=== PATIENT | male | born 1945 | race Caucasian/White ===

== ENCOUNTER → 2018-07-12 15:17 | Outpatient (CLI) | payer MEDICARE, OTHER, SELFPAY ==
--- OUTSIDE RECORDS SUMMARY | 2018-09-07 08:23 | XMS RPT_ITS ---
:1945 Author Organization [facility] Care Team Providers Name Role Phone Everardo Dave Attending Unavailable Everardo Dave Referring Unavailable Rukhsana Melo Primary Care Unavailable Everardo Dave Attending Unavailable Everardo Dave Referring Unavailable Rukhsana Melo Primary Care Unavailable PROBLEMS PROBLEMS No Problem Records FoundPROCEDURES PROCEDURES No Procedure Records FoundRESULTS RESULTS KIDNEY AND BLADDER Observed: 07/14/2018 Status: F Source: LAVINIA 9:25 AM [facility] REPOSITORY [facility] Imaging Services [address] [place] [address] Kidney and Bladder MR#: [id number] Acct: [id number] Name: LUCIAON OLSON Rep #: [id number] : 1945 M 73 From: Chang Black DO PCP: Rukhsana Melo MD Status: REG CLI Study: Kidney and Bladder Date of Exam: 07/14/18 Exam# [id number] Ordering Dr: Everardo Dave MD STUDY: RENAL ULTRASOUND - COMPLETE REASON FOR EXAM: Male, 73 years old. Follow-up of left renal cancer surgery in 2008 TECHNIQUE: Ultrasound evaluation of the kidneys was performed with real-time and static ramirez-scale imaging. COMPARISON: None. FINDINGS: RIGHT KIDNEY: Normal location of the right kidney, which is normal in size. The right kidney measures 11 cm. There is a normal cortex of the right kidney. The renal cortex measures 1.2 cm. Superior pole cyst measuring 1.1 x 0.9 x 0.7 cm. There are no right renal calculi. There is no right hydronephrosis. DISTAL RIGHT URETER: There is non-visualization of the distal right ureter. There is no demonstrated right ureterovesical junction calculus. There is no demonstrated right ureteral jet. LEFT KIDNEY: Normal location of the left kidney, which is normal in size. The left kidney measures 11 cm. There is a normal cortex of the left kidney. The renal cortex measures 1.1 cm. Small midpole cyst measuring 1.3 x 1.2 x 1.6 cm There are no left renal calculi. There is no left hydronephrosis. DISTAL LEFT URETER: There is non-visualization of the distal left ureter. There is no demonstrated left ureterovesical junction calculus. There is no demonstrated left ureteral jet. BLADDER: The distended urinary bladder has a volume of 212 ml. The empty urinary bladder has a volume of 66 ml. There is a normal wall thickness of the distended urinary bladder. There is no demonstrated mass within the urinary bladder. There are no demonstrated bladder calculi. US/Kidney and Bladder IMPRESSION: No evidence of suspicious renal mass. Grossly unremarkable kidneys. Small bilateral renal cysts. Electronically Signed: Chang Black DO at 10:43 EST Tel , Service support , CC: Rukhsana Melo MD; Everardo Dave MD Shallot Packer: Signed PSA,TOTAL - ANNUAL Collected: 07/12/2018 Status: F Source: LAVINIA SCREEN 3:27 PM [facility] REPOSITORY TYPE CODE TESTS RESULT OUT OF RANGE REFERENCE UNITS LAB L501.9910 0.00-4.00 ng/mL Normal PSA,TOT 2.60 SCREEN Result Comment: This test was performed using the TPSA assay method for the Dimension chemistry system. Values obtained with different assay methods cannot be used interchangably. When changing PSA assays in the course of monitoring a patient, additional sequential testing should be carried out to confirm baseline values. Performed By: #### L501.9910 #### [facility] [address] [place], [address] PROGRESS Observed: 03/13/2018 Status: COMPLETED Source: SACHSE 1:03 PM [facility] REPOSITORY HNO ID: [id number] Author: Miryam Gallegos Service: (none) Author Type: Nurse Practitioner Type: Progress Notes Filed: 03/13/2018 1:06 PM Note Text: Subjective HPI Pt presents with c/o tender area to left upper eye lid x several hours. Denies eye pain, vision change, fever, chills. Has not applied heat. Denies injury. Review of Systems Constitutional: Negative for chills and fever. Eyes: Negative for blurred vision, double vision, photophobia, pain, discharge and redness. Objective Physical Exam Constitutional: He is oriented to person, place, and time and well-developed, well-nourished, and in no distress. No distress. HENT: Head: Normocephalic. Right Ear: Hearing, tympanic membrane, external ear and ear canal normal. Left Ear: Hearing, tympanic membrane, external ear and ear canal normal. Nose: Nose normal. No mucosal edema. Mouth/Throat: Uvula is midline, oropharynx is clear and moist and mucous membranes are normal. No oropharyngeal exudate. Eyes: EOM are normal. Pupils are equal, round, and reactive to light. Left eye exhibits hordeolum. Left eye exhibits no discharge. Right conjunctiva is not injected. Left conjunctiva is not injected. Pupils unequal: vision 20/20 via dawn card. Neck: Neck supple. Cardiovascular: Normal rate, regular rhythm and normal heart sounds. Exam reveals no gallop and no friction rub. No murmur heard. Pulmonary/Chest: Effort normal and breath sounds normal. No respiratory distress. He has no wheezes. He has no rales. Neurological: He is alert and oriented to person, place, and time. Skin: Skin is warm and dry. He is not diaphoretic. BP 130/80 Pulse 80 Temp 36.6 ?C (97.8 ?F) (Left Tympanic) Resp 18 Wt 80.3 kg (177 lb) BMI 27.72 kg/m? .Patient presents with: Eye Problem PAST MEDICAL HISTORY Diagnosis Date - Benign neoplasm of colon 09/30/05 - Brain bleed (HCC) 09/2014 - External hemorrhoids without mention of complication 09/30/05 - Hemorrhage of gastrointestinal tract, unspecified 09/30/05 - Internal hemorrhoids without mention of complication 09/30/05 - PMH - PAST MEDICAL HISTORY OF 1999 mitral valve replacement - Renal cell carcinoma (HCC) 06/24 PAST SURGICAL HISTORY Procedure Laterality Date - COLONOS W/REM POLYP SNARE 07/24/11 - COLONOSCOPY AND POLYPECTOMY 11/02/2016 - COLONOSCOPY W/BX 09/30/05 - PAST SURGICAL HISTORY OF 1999 mitral valve replacement - PAST SURGICAL HISTORY OF 06/2009 kidney surgery - REMOVAL ADENOIDS,PRIMARY,<12 Y/O Adenoidectomy - REMOVAL OF TONSILS,<12 Y/O Tonsillectomy ALLERGIES Iodine; Novacaine [Procainamide]; Zocor [Simvastatin] MEDICATIONS warfarin (COUMADIN) 4 mg tablet 5 mg daily or as directed warfarin (COUMADIN) 1 mg tablet Take 1 tablet by mouth once daily. aspirin, enteric coated (ECOTRIN LOW STRENGTH) 81 mg EC tablet Take 1 tablet by mouth once daily. Take 3 times per week pravastatin (PRAVACHOL) 40 mg tablet Take 1 tablet by mouth daily at bedtime. OTC PRODUCT Stool softener daily. erythromycin ophthalmic ointment Use 1 application in the left eye daily at bedtime. FAMILY HISTORY Problem Relation Age of Onset - Cancer Mother Breast and colon cancer - None Father old age - throat cancer [OTHER] Brother - Diabetes Brother Social History Substance Use Topics - Smoking status: Former Smoker Packs/day: 1.00 Years: 25.00 Types: Cigarettes Quit date: 03/16/1988 - Smokeless tobacco: Never Used - Alcohol use Yes Comment: twice per year ASSESSMENT/PLAN: 1. Hordeolum internum of left upper eyelid - ICD9: 373.12, ICD10: H00.024 - ERYTHROMYCIN 5 MG/GRAM (0.5 %) EYE OINTMENT Reviewed and printed stye education. The patient is instructed to return or seek emergency treatment if symptoms become worse or with any acute change in condition. The patient verbalizes understanding and is in agreement with plan of care. Miryam Gallegos CNP CNOV Observed: 03/13/2018 Status: COMPLETED Source: SACH[place] 10:15 AM [facility] WHITNEYLUCIANO ([id number]) 1945 M Date Time Provider Department 03/13/18 10:15 AM MIRYAM GALLEGOS [facility] During your visit today, we recorded the following information about you: Temperature Pulse Respiration Blood pressure 97.8 degrees 80/minute 18/minute 130/80 Weight 80.3 kg Miryam Gallegos APRN.CNP 03/13/2018 10:21 AM Signed [facility] [address] [place] [address] Emergency Department Diagnosis: Assessment STY: You have a sty, an infection of one of the tiny glands located on the eyelid. A sty takes several days to develop. It usually forms a small abscess along the edge of the eyelid. The pus that forms in the infected gland must drain for the sty to heal. A sty is treated by applying warm moist compresses to the eye for 15 minutes three times daily until it drains and the swelling and redness are gone. Some sties require surgical drainage. Antibiotic eye drops may be needed if the infection spreads to other areas of the eye. Please see your doctor if your eye is not better after 3 days of treatment. Return immediately of see your doctor for any fever or loss of vision. Miryam Gallegos APRN.CNP 03/13/2018 1:06 PM Signed Subjective HPI Pt presents with c/o tender area to left upper eye lid x several hours. Denies eye pain, vision change, fever, chills. Has not applied heat. Denies injury. Review of Systems Constitutional: Negative for chills and fever. Eyes: Negative for blurred vision, double vision, photophobia, pain, discharge and redness. Objective Physical Exam Constitutional: He is oriented to person, place, and time and well-developed, well-nourished, and in no distress. No distress. HENT: Head: Normocephalic. Right Ear: Hearing, tympanic membrane, external ear and ear canal normal. Left Ear: Hearing, tympanic membrane, external ear and ear canal normal. Nose: Nose normal. No mucosal edema. Mouth/Throat: Uvula is midline, oropharynx is clear and moist and mucous membranes are normal. No oropharyngeal exudate. Eyes: EOM are normal. Pupils are equal, round, and reactive to light. Left eye exhibits hordeolum. Left eye exhibits no discharge. Right conjunctiva is not injected. Left conjunctiva is not injected. Pupils unequal: vision 20/20 via dawn card. Neck: Neck supple. Cardiovascular: Normal rate, regular rhythm and normal heart sounds. Exam reveals no gallop and no friction rub. No murmur heard. Pulmonary/Chest: Effort normal and breath sounds normal. No respiratory distress. He has no wheezes. He has no rales. Neurological: He is alert and oriented to person, place, and time. Skin: Skin is warm and dry. He is not diaphoretic. BP 130/80 Pulse 80 Temp 36.6 ?C (97.8 ?F) (Left Tympanic) Resp 18 Wt 80.3 kg (177 lb) BMI 27.72 kg/m? .Patient presents with: Eye Problem PAST MEDICAL HISTORY Diagnosis Date - Benign neoplasm of colon 09/30/05 - Brain bleed (HCC) 09/2014 - External hemorrhoids without mention of complication 09/30/05 - Hemorrhage of gastrointestinal tract, unspecified 09/30/05 - Internal hemorrhoids without mention of complication 09/30/05 - PMH - PAST MEDICAL HISTORY OF 1999 mitral valve replacement - Renal cell carcinoma (HCC) 06/24 PAST SURGICAL HISTORY Procedure Laterality Date - COLONOS W/REM POLYP SNARE 07/24/11 - COLONOSCOPY AND POLYPECTOMY 11/02/2016 - COLONOSCOPY W/BX 09/30/05 - PAST SURGICAL HISTORY OF 1999 mitral valve replacement - PAST SURGICAL HISTORY OF 06/2009 kidney surgery - REMOVAL ADENOIDS,PRIMARY,<12 Y/O Adenoidectomy - REMOVAL OF TONSILS,<12 Y/O Tonsillectomy ALLERGIES Iodine; Novacaine [Procainamide]; Zocor [Simvastatin] MEDICATIONS warfarin (COUMADIN) 4 mg tablet 5 mg daily or as directed warfarin (COUMADIN) 1 mg tablet Take 1 tablet by mouth once daily. aspirin, enteric coated (ECOTRIN LOW STRENGTH) 81 mg EC tablet Take 1 tablet by mouth once daily. Take 3 times per week pravastatin (PRAVACHOL) 40 mg tablet Take 1 tablet by mouth daily at bedtime. OTC PRODUCT Stool softener daily. erythromycin ophthalmic ointment Use 1 application in the left eye daily at bedtime. FAMILY HISTORY Problem Relation Age of Onset - Cancer Mother Breast and colon cancer - None Father old age - throat cancer [OTHER] Brother - Diabetes Brother Social History Substance Use Topics - Smoking status: Former Smoker Packs/day: 1.00 Years: 25.00 Types: Cigarettes Quit date: 03/16/1988 - Smokeless tobacco: Never Used - Alcohol use Yes Comment: twice per year ASSESSMENT/PLAN: 1. Hordeolum internum of left upper eyelid - ICD9: 373.12, ICD10: H00.024 - ERYTHROMYCIN 5 MG/GRAM (0.5 %) EYE OINTMENT Reviewed and printed stQuad/Graphics education. The patient is instructed to return or seek emergency treatment if symptoms become worse or with any acute change in condition. The patient verbalizes understanding and is in agreement with plan of care. Miryam Gallegos CNP Referring Provider: SELF [200] Allergies As of Date: 03/13/2018 Noted Allergy Reaction IODINE 08/20/2005 5 - Intolerance Comments: IV NOVACAINE (PROCAINAMIDE) 07/18/2008 10 - Anaphylaxis ZOCOR (SIMVASTATIN) 08/20/2005 5 - Intolerance Comments: hot flashes,sweat, Date Reviewed: 03/13/2018 Reviewed by: Tali Ulloa Ma - Fully Assessed Reason for Visit: Eye Problem [43] Primary Visit Diagnosis:Hordeolum internum of left upper eyelid [H00.024] Order(s):erythromycin ophthalmic ointmentUse 1 application in the left eye daily at bedtime.Disp: 1 TubeRfl: 0 Prescriptions as of 03/13/2018 Sig: WARFARIN 4 MG TABLET 5 mg daily or as directed WARFARIN 1 MG TABLET Take 1 tablet by mouth once d* ASPIRIN 81 MG TABLET,DELAYED * Take 1 tablet by mouth once d* PRAVASTATIN 40 MG TABLET Take 1 tablet by mouth daily * OTC PRODUCT Stool softener daily. ERYTHROMYCIN 5 MG/GRAM (0.5 %* Use 1 application in the left* Problem List As Of Date 03/13/2018 Noted Resolved BENIGN NEOPLASM LG BOWEL [D12.6] INVALID FOR* GASTROINTEST HEMORR NOS [K92.2] INVALID FOR* INT HEMORRHOID W/O COMPL [K64.8] INVALID FOR* EXT HEMORRHOID W/O COMPL [K64.4] INVALID FOR* HEART VALVE REPLAC NEC [Z95.4] INVALID FOR* Hyperlipidemia, Mixed [E78.2] INVALID FOR* Diverticulosis [K57.90] INVALID FOR* Personal history of colonic polyps [Z86.010] INVALID FOR* Encounter for screening colonoscopy [Z12.11] INVALID FOR* Other instructions from your clinician: [facility] [address] [place], [place] [address] Emergency Department Diagnosis: Assessment STY: You have a sty, an infection of one of the tiny glands located on the eyelid. A sty takes several days to develop. It usually forms a small abscess along the edge of the eyelid. The pus that forms in the infected gland must drain for the sty to heal. A sty is treated by applying warm moist compresses to the eye for 15 minutes three times daily until it drains and the swelling and redness are gone. Some sties require surgical drainage. Antibiotic eye drops may be needed if the infection spreads to other areas of the eye. Please see your doctor if your eye is not better after 3 days of treatment. Return immediately of see your doctor for any fever or loss of vision. Prescriptions ordered this encounter Disp Refills Start End ERYTHROMYCIN 5 MG/GRAM (0.5 %) EYE O* 1 Tu* 0 03/13/2018 Route: LEFT EYE Sig: Use 1 application in the left eye daily at bedtime. Encounter Status:Closed by MIRYAM GALLEGOS CNP on 03/13/18 ALLERGIES ALLERGIES DATE TYPE / NAME / CODE REACTION SEVERITY SOURCE CODE 10/26/2016 Drug simvastatin/[id number] Other Unknown Lavinia Allergy/41 3621(RXNORM) [facility] [id number]([facility]) Repository 10/26/2016 Drug procaine/[id number] Swelling Unknown Lavinia Allergy/41 5(RXNORM) [facility] [id number]( [facility]) Repository 07/18/2008 DRUG PROCAINAMIDE ANAPHYLAXIS [address] [id number]( Repository [facility]) 08/20/2005 DRUG IODINE INTOLERANCE [address] [id number]( Repository O[facility]) 08/20/2005 DRUG SIMVASTATIN INTOLERANCE [address] [id number]( Repository O[facility]) ENCOUNTERS ENCOUNTERS ADMIT/DISCHARGE ACCOUNT ADMITTING ENCOUNTER LOCATION SOURCE NUMBER CLASS 07/14/2018 [id number] General acute hospital ing:US Repository 07/12/2018 [id number] General acute hospital ing:LAB Repository 03/13/2018/03/16/20 [id number] Ambulatory [address] Repository PAYERS PAYERS ENCOUNTER GUARANTOR PAYER SUBSCRIBER SOURCE 07/14/2018 LUCIANO Cortes Primary LUCIANO Kate [id number] Insurance:MEDICARE ZEITERDOB: [facility] [id number] Number: Repository [id number]: 330 [id number] [phone] (HP) Date:2018-07-12 07/14/2018 Secondary LUCIANO Kate Insurance:MUTUAL OF ZEITERDOB: [facility] Number: [id number] Hospital [id number] Repository Date:2434-15-79OYWWQE [place], [place] [address]GF: 07/14/2018 Tertiary NOT GIVENUNK [place] Insurance:SELF PAY [facility] Number: Effective Repository Date:2018-07-12 07/12/2018 LUCIANO E Primary LUCIANO Kate [id number] Insurance:MEDICARE ZEITERDOB: [facility] [id number] Number: Repository [id number]: 330 [id number] [phone] (HP) Date:2018-07-12 07/12/2018 Secondary LUCIANO Kate Insurance:MUTUAL OF ZEITERDOB: [facility] Number: [id number] Hospital [id number] Repository Date:6929-28-33MOBPSB OF [place] [address]WI: 07/12/2018 Tertiary NOT GIVENUNK Lavinia Insurance:SELF [facility]Y [facility]: Effective Repository Date:2018-07-12
== END ==
PROVIDERS: Family Provider Family Medicine; PCP Family Medicine; Referring Provider Urology; Visit Provider Urology
DX: Z12.5 Encounter for screening for malignant neoplasm of prostate (principal)
CPT/HCPCS: 36415; 84153; G0103

== ENCOUNTER → 2018-07-14 09:22 | Outpatient (CLI) | payer MEDICARE, OTHER, SELFPAY ==
--- NOTE | 2018-07-14 09:25 | US_ITS ---
STUDY: RENAL ULTRASOUND - COMPLETE REASON FOR EXAM: Male, 73 years old. Follow-up of left renal cancer surgery in 2008 TECHNIQUE: Ultrasound evaluation of the kidneys was performed with real-time and static ramirez-scale imaging. COMPARISON: None. FINDINGS: RIGHT KIDNEY: Normal location of the right kidney, which is normal in size. The right kidney measures 11 cm. There is a normal cortex of the right kidney. The renal cortex measures 1.2 cm. Superior pole cyst measuring 1.1 x 0.9 x 0.7 cm. There are no right renal calculi. There is no right hydronephrosis. DISTAL RIGHT URETER: There is non-visualization of the distal right ureter. There is no demonstrated right ureterovesical junction calculus. There is no demonstrated right ureteral jet. LEFT KIDNEY: Normal location of the left kidney, which is normal in size. The left kidney measures 11 cm. There is a normal cortex of the left kidney. The renal cortex measures 1.1 cm. Small midpole cyst measuring 1.3 x 1.2 x 1.6 cm There are no left renal calculi. There is no left hydronephrosis. DISTAL LEFT URETER: There is non-visualization of the distal left ureter. There is no demonstrated left ureterovesical junction calculus. There is no demonstrated left ureteral jet. BLADDER: The distended urinary bladder has a volume of 212 ml. The empty urinary bladder has a volume of 66 ml. There is a normal wall thickness of the distended urinary bladder. There is no demonstrated mass within the urinary bladder. There are no demonstrated bladder calculi. US/Kidney and Bladder IMPRESSION: No evidence of suspicious renal mass. Grossly unremarkable kidneys. Small bilateral renal cysts. Electronically Signed: Chang Black DO at 10:43 EST Tel , Service support ,
--- OUTSIDE RECORDS SUMMARY | 2018-09-08 10:17 | XMS RPT_ITS ---
[...] 07/14/2018 Status: F Source: LAVINIA 9:25 AM [facility] REPOSITORY [facility] Imaging Services [address] [place] [address] Kidney and Bladder MR#: [id number] Acct: [id number] Name: LUCIANO OLSON Rep #: [id number] : 1945 M 73 From: Chang Black DO PCP: Rukhsana Melo MD Status: REG CLI Study: Kidney and Bladder Date of Exam: 07/14/18 Exam# [id number] Ordering Dr: Everardo Dave MD STUDY: RENAL [...] CC: Rukhsana Melo MD; Everardo Dave MD Database Modeler: Signed PSA,TOTAL - ANNUAL Collected: 07/12/2018 Status: F Source: LAVINIA SCREEN 3:27 PM [facility] REPOSITORY TYPE CODE TESTS RESULT OUT OF [...] baseline values. Performed By: #### L501.9910 #### [facility] [address] [place], [address] PROGRESS Observed: 03/13/2018 Status: COMPLETED Source: MONTELLO 1:03 PM [facility] REPOSITORY HNO ID: [id number] Author: Miryam Gallegos Service: (none) Author Type: [...] CNP CNOV Observed: 03/13/2018 Status: COMPLETED Source: MONTELLO 10:15 AM [facility] REPOSITORY [facility] WHITNEYLUCIANO ([id number]) 1945 M Date Time Provider Department 03/13/18 10:15 AM MIRYAM GALLEGOS [facility] During your visit today, we recorded the following information about you: Temperature Pulse Respiration Blood pressure 97.8 degrees 80/minute 18/minute 130/80 Weight 80.3 kg Miryam Gallegos APRN.CNP 03/13/2018 10:21 AM Signed [facility] [address] [place] [address] Emergency Department Diagnosis: Assessment STY: You have [...] (0.5 %) EYE OINTMENT Reviewed and printed [email or web address] education. The patient is instructed to return [...] FOR* Other instructions from your clinician: [facility] [address] [place], [place] [address] Emergency Department Diagnosis: Assessment STY: You have [...] CODE REACTION SEVERITY SOURCE CODE 10/26/2016 Drug simvastatin/[id number] Other Unknown Lavinia Allergy/41 3621(RXNORM) [facility] [id number]([facility]) Repository 10/26/2016 Drug procaine/[id number] Swelling Unknown Lavinia Allergy/41 5(RXNORM) [facility] [id number]( Hospital [facility]) Repository 07/18/2008 DRUG PROCAINAMIDE ANAPHYLAXIS [address] [id number]( Repository O[address] CT) 08/20/2005 DRUG IODINE INTOLERANCE [address] [id number]( Repository O[address] CT) 08/20/2005 DRUG SIMVASTATIN INTOLERANCE [address] [id number]( Repository O[address] CT) ENCOUNTERS ENCOUNTERS ADMIT/DISCHARGE ACCOUNT ADMITTING ENCOUNTER LOCATION SOURCE NUMBER CLASS 07/14/2018 [id number] [facility] ing:US Repository 07/12/2018 [id number] [facility] ing:LAB Repository 03/13/2018/03/16/20 [id number] Ambulatory [address] Repository PAYERS PAYERS ENCOUNTER GUARANTOR PAYER SUBSCRIBER SOURCE 07/14/2018 LUCIANO Cortes Primary LUCIANO Kate [id number] Insurance:MEDICARE ZEITERDOB: [facility] [id number] Number: Repository [id number]: 330 [id number] [phone] (HP) Date:2018-07-12 07/14/2018 Secondary LUCIANO Kate Insurance:MUTUAL OF ZEITERDOB: [facility] Number: [id number] Hospital [id number] Repository Date:1951-16-42[place]KLEL [place], [place] [address]RA: 07/14/2018 Tertiary NOT GIVENUNK [place] Insurance:SELF PAY [facility] Number: Effective Repository Date:2018-07-12 07/12/2018 LUCIANO E Primary LUCIANO Kate [id number] Insurance:MEDICARE ZEITERDOB: [facility] [id number] Number: Repository [id number]: 330 [id number] [phone] (HP) Date:2018-07-12 07/12/2018 Secondary LUCIANO Kate Insurance:MUTUAL OF ZEITERDOB: [facility] Number: [id number] [id number] Repository Date:4650-97-29[place]QUPR[place] [address]CO: 07/12/2018 Tertiary NOT GIVENUNK Lavinia Insurance:SELF PAY [facility] Effective Repository Date:2018-07-12
== END ==
PROVIDERS: Family Provider Family Medicine; PCP Family Medicine; Referring Provider Urology; Visit Provider Urology
DX: C64.9 Malignant neoplasm of unspecified kidney, except renal pelvis (principal)
CPT/HCPCS: 76770

== ENCOUNTER → 2018-11-01 08:55 | Outpatient (CLI) | payer MEDICARE, OTHER, SELFPAY ==
[2016-11-02 06:32] VITALS: BMI 26.5
[2018-11-01 10:34] LABS: ALB/GLOB Ratio 1.2 RATIO (0.9-2.4); AST(SGOT) 38 U/L (15-37); Alanine Aminotransfer ALT/SGPT 41 U/L (16-61); Alkaline Phosphatase 63 U/L (45-117); Anion Gap 9 (5-15); BUN 16 mg/dL (7-18); BUN/Creat Ratio 13.2 RATIO (10-20); Calcium,Total 8.9 mg/dL (8.5-10.1); Chloride 104 mmol/L (98-107); Cholesterol 196 mg/dL (200); Creatinine, Serum 1.21 mg/dL (0.70-1.30); EST Glomerular Filtration Rate 63 mL/min (>60); Est Glom Filt Rate - Afr Amer 76 mL/min (>60); Globulin 3.4 g/dL (2.2-4.2); Glucose 87 mg/dL (74-106); High Density Lipoprotein 66 mg/dL; Potassium 4.4 mmol/L (3.5-5.1); Protein, Total 7.4 g/dL (6.4-8.2); Sodium Level 138 mmol/L (136-145); Triglycerides 84 mg/dL; Very Low Density Lipoprotein 17 mg/dL (5-40)
== END ==
PROVIDERS: Family Provider Family Medicine; PCP Family Medicine; Referring Provider Family Medicine; Visit Provider Nurse Practitioner Family
DX: E78.00 Pure hypercholesterolemia, unspecified (principal)
CPT/HCPCS: 36415; 80053; 80061

== ENCOUNTER 2019-03-16 10:38 | Emergency (ER) | payer MEDICARE, OTHER, SELFPAY ==
[2019-03-16 10:40] VITALS: BP 139/79; PULSE 66; RESP 14; TEMP 36.4; O2SAT 97; BMI 26.4
--- NOTE | 2019-03-16 11:30 | ED.DCSUM_ITS ---
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 Is helping to change out windows at his home and cut his right thumb within the last several hours on broken glass. Tetanus is up-to-date about a year ago. Does not believe there is any foreign body. Patient is right-hand dominant. Denies any numbness. Physical Examination: Older male no acute distress. Vital signs are stable and afebrile. HEENT exam unremarkable. Neck nontender. Lungs clear to auscultation. Heart mechanical valve with a soft ejection murmur. Abdomen soft. Extremities moving all 4. Neurovascular intact. The right palm thenar eminence of the thumb he has a 3 cm laceration with oozing of blood. No pulsatile bleeding. No foreign body. No signs of infection. Right hand is completely neurovascular intact is able to open and close all digits of the hand. He is normal touch sensation normal range of motion. There is no bony deformity. Test Results: None Emergency Department Course and Treatment: Right palm laceration repair: Locally anesthetized with lidocaine. Cleaned with Shur-Clens. Explored. Irrigated with saline. Closed using 4 simple interrupted 4-0 Ethilon sutures. Proper hemostasis wound closure obtained. Patient tolerated procedure well. Treatment Plan: Ice and elevate. Wound care. Suture removal in 10 days. Watch for any signs of infection. Disposition: Discharge Impression: Right palm laceration 3 cm with ER repair Anticoagulated on Coumadin due to mechanical valve This note was generated with [employer] dictation software. It may contain incorrect words, spelling, and punctuation that were not noted in review of the chart prior to signing ED Disposition - Plan for ED Patient: Referrals: Rukhsana Melo MD [Primary Care Provider] -
--- NOTE | 2019-03-16 11:33 | ED.DEP ---
ED Disposition - Plan for ED Patient: Disposition: Home or Assisted Living Instructions: LACERATION, Extrem (Suture, Staple or Tape) Referrals: Rukhsana Melo MD [Primary Care Provider] - 10 Day for suture removal Additional Instructions: Ice and elevate. Clean daily and apply antibiotic ointment. Watch for any signs of infection such as pus, redness or fever. Stitches removed in 10 days
== END 2019-03-16 12:02 | disposition home or self-care (01) ==
LOC: ED 11:45
PROVIDERS: Emergency Provider Emergency Medicine; Family Provider Family Medicine; PCP Family Medicine
DX: S61.011A Laceration without foreign body of right thumb without damage to nail, initial encounter (principal); W25.XXXA Contact with sharp glass, initial encounter; Y93.9 Activity, unspecified; Y92.9 Unspecified place or not applicable; R01.1 Cardiac murmur, unspecified; Z95.2 Presence of prosthetic heart valve; Z79.01 Long term (current) use of anticoagulants; E78.00 Pure hypercholesterolemia, unspecified; Z79.82 Long term (current) use of aspirin; Z79.899 Other long term (current) drug therapy
CPT/HCPCS: 12002; 99282

== ENCOUNTER → 2019-12-05 10:07 | Outpatient (CLI) | payer MEDICARE, OTHER, SELFPAY ==
[2019-12-05 12:19] LABS: AST(SGOT) 27 U/L (15-37); Alanine Aminotransfer ALT/SGPT 30 U/L (16-61); Cholesterol 191 mg/dL (200); High Density Lipoprotein 57 mg/dL; Triglycerides 135 mg/dL; Very Low Density Lipoprotein 27 mg/dL (5-40)
== END ==
PROVIDERS: PCP Family Medicine; Referring Provider Family Medicine; Visit Provider Family Medicine
DX: E78.00 Pure hypercholesterolemia, unspecified (principal)
CPT/HCPCS: 36415; 80061; 84450; 84460

== ENCOUNTER 2020-01-29 05:24 | Day surgery (SDC) | payer MEDICARE, OTHER, SELFPAY ==
[2020-01-16 16:00] VITALS: BMI 27.6
[2020-01-28 13:45] LABS: Probe Check PASS; Specimen Processing Control PASS
[2020-01-29 05:45] VITALS: BP 139/97; PULSE 71; RESP 16; TEMP 36.8; O2SAT 97; BMI 27.0
[2020-01-29] MEDS: Lactated Ringers 1,000 ML 100 ML IV (06:05)
--- NOTE | 2020-01-29 06:06 | PCM.HP.BLA ---
Problem List (1) History of colonic polyps Status: Acute History and Physical Date of Admission: 01/29/20 Intake Visit Reasons: CSCOPE Chief Complaint: c-scope, hx colon polyps Hematology Technician Required: No Is patient in pain?: No Allergies procaine [From Novocain] Allergy (Verified 01/04/20 07:38) Swelling simvastatin [From Zocor] Allergy (Verified 01/04/20 07:38) Other Medications Pravastatin [Pravachol] 40 mg PO QHS 07/25/13 [History Confirmed 01/04/20] Warfarin [Coumadin] 4 mg PO SUTUTHSA 07/25/13 [History Confirmed 01/04/20] Warfarin [Coumadin] 3 mg PO MOWEFR 03/29/14 [History Confirmed 01/04/20] Aspirin E.C. [Ecotrin] 81 mg PO MOWEFR 10/26/16 [History Confirmed 01/04/20] Docusate Sodium [Stool Softener] 100 mg PO DAILY 10/26/16 [History Confirmed 01/04/20] [facility] Medical History (Updated 01/04/20 @ 08:[address] Marino Ontiveros MD) Chronic anticoagulation (Acute) Family history of malignant neoplasm of colon in mother (Acute) History of colonic polyps (Acute) Back pain (Acute) Hemorrhoid (Acute) History of colon polyps (Acute) History of kidney cancer (Acute) Rheumatoid arthritis (Acute) history of brain bleed (Acute) Surgical History (Updated 01/04/20 @ 08:[address] Marino Ontiveros MD) Mitral valve replaced (Acute) History of colonoscopy with polypectomy (Acute ~10/2016) History of heart valve replacement (Acute) History of nephrectomy (Acute) Family History (Updated 01/04/20 @ 07:37 by Dinorah Chiu) Mother Colon cancer Breast cancer Social History (Updated 01/04/20 @ 08:[address] Marino Ontiveros MD) Smoking Status: Former smoker HPI HPI HPI: LUCIANO OLSON, is a 74 M who presents to the office today for surgical consultation regarding a colonoscopy because of a personal history of colon polyps and a family history of colon cancer in his mother. His most recent colonoscopy was 2016. He does have a mitral valve replacement. He is on chronic Coumadin. He states that his INR typically runs 2.5-3.5. More recently it is been at 4. I have pathology from November 02, 2016 showing a mid transverse colon polyp tubular adenoma and a distal sigmoid polyp tubular adenoma. He was left fully anticoagulated at Coumadin at that time with no changes and he was treated with 2 g of ampicillin IV. He denies chest pain or shortness of breath no fever chills or sweats no nausea or vomiting no abdominal pain no bright red blood per rectum or melena. He does have concerns about the benefit of wearing masks. The patient is referred by Dr. Rukhsana Melo for surveillance colonoscopy and a written copy of my surgical consult and recommendations will be returned to her HPI HPI HPI: LUCIANO OLSON, is a 74 M who presents to the office today for ROS General General: No weight change, appetite, fatigue, colon cancer, breast cancer or weakness HEENT HEENT: No difficulty swallowing, eye injury, eye surgery, swollen glands or hoarseness Endo Endocrine: No thyroid disease, diabetes mellitus, thyroid cancer, Hair loss, heat intolerance or cold intolerance Musc Musculoskeletal: Yes back problems and rheumatoid arthritis; no arthritis, gout or joint pain Cardio Cardiovascular: No murmur, pacemaker, heart disease, atrial fibrillation, high blood pressure, heart attack, heart stent, palpitations, shortness of breat with exertion or chest pain Psych Psychiatric: No depression, anxiety or hearing voices Resp Respiratory: No shortness of breath, No sleep apnea, No cough, No COPD, No asthma, No emphysema, No wheezing Gastro Gastrointestinal: No abdominal pain, No nausea or vomiting, No diarrhea, No constipation, No blood in stool, No acid reflux, Yes hemorrhoids, No ulcers, No gallbladder problem, No black,tarry stools Kali Hematologic: No blood thinners, No blood disorders, No bleeding, No anemia, No blood clots Neuro Neurologic: No weakness Exam Const General: cooperative, comfortable, no acute distress Nutritional Appearance: average body habitus Orientation: alert, awake [facility] Head: normal to inspection Chest Chest palpation & inspection: normal inspection of the chest Resp Effort & Inspection: normal respiratory effort Auscultation: clear to auscultation bilaterally Cardio Rate: regular rate Rhythm: regular rhythm Heart Sounds: no murmurs GI Palpation: soft Auscultation: normal bowel sounds Neuro Cognition: normal cognition Extrem General: no calf tenderness Psych Affect: normal affect Assessment & Plan Problems 1. History of colonic polyps Z86.010 2. Family history of malignant neoplasm of colon in mother Z80.0 3. Mitral valve replaced Z95.2 4. Chronic anticoagulation Z79.01 Plan I recommended the patient a colonoscopy with possible biopsy or polypectomy as indicated. He is aware of the technique, benefit, risk, alternatives. He states that recently his INR is ranging as high as 4. He does not precisely recall when he would have had his mitral valve replacement recently checked. He does see Dr. Maloney intermittently locally. Although his previous colonoscopy was performed without alteration in his warfarin I believe that proceeding with a colonoscopy if his INR is 4 would perhaps be too risky. I recommend that we obtain cardiology input regarding any needs to update evaluation of his valve and recommendations as to INR value that would be acceptable. The patient is very much aware of the technique, benefit, risks of the colonoscopy and the increased risk with the valve and anticoagulation As noted in the history the patient is against wearing masks. This would place him at increased risk for Covid-19. We will pursue routine pre-intervention screening and try to stress to him the ongoing the importance of quarantine prior to the colonoscopy in an effort to try to protect all involved staff. The patient is aware of the Covid-19 pandemic and the risks of intervention. He has had an opportunity to ask and have questions answered. He is agreeable to scheduling proceeding as noted. Cc: Dr. Rukhsana Ontiveros M.D., F.A.C.S. Orders Orders: Colonoscopy Today Coding Level of Care Code 31567 Diagnoses History of colonic polyps Z86.010 Family history of malignant neoplasm of colon in mother Z80.0 Mitral valve replaced Z95.2 Chronic anticoagulation Z79.01 01/04/20 0807 <Electronically signed by Marino Ontiveros MD> Date Marino Ontiveros MD I have re-examined the patient. There are no clinical changes since date of exam. Procedure Criteria Procedure Type: Elective COVID Risk Discussion: The surgeon/proceduralist and patient have discussed in detail the risk of exposure to and/or potential harm posed by the COVID-19 virus with having a surgery/procedure at this time versus the risk of delaying the surgery/procedure. It is not possible to know either the risk of delaying the surgery or procedure or chance of getting an infection with perfect accuracy, but a joint decision was made between the patient and the surgeon/proceduralist to proceed at this time with the scheduled surgery/procedure as indicated on the consent form.
--- NOTE | 2020-01-29 06:30 | COLBX_PTH ---
PATIENT: LUCIANO OLSON LOC: [facility] U#:[id number] AGE/SX: 75/M ROOM: RE01/29/[address]: Dr. Marino Ontiveros MD : 1945 BED: DIS: 01/29/2020 SPEC #: [id number] RECD: 01/29/20 09:43 STATUS: MARCIE MARIO ALBERTO #: [id number] ALON: 01/29/20 06:[address]: Marino Ontiveros DEPT: SURGICAL PATHOLOGY RECD BY: Bryon Bueno ENTERED: 01/29/20 10:42 SP TYPE: COLON BX SAUL DR: Dr. Rukhsana Melo MD Tissues: A - Cecum, NOS B - Transverse colon C - Sigmoid colon biopsy Procedures: Surgery Specimen Level IV HEADER OPERATION: Colonoscopy (MAC) PRE-OP DIAGNOSIS: History colonic polyps TISSUE SUBMITTED: A - Cecum/ileocecal valve polyp (cold snare), B - Distal transverse polyp biopsy, C - Proximal sigmoid polyp biopsy MICROSCOPIC DIAGNOSIS A. Cecum/ileocecal valve polyp, biopsy: Fragments of tubular adenoma. B. Distal transverse colon polyp, biopsy: Fragments of tubular adenoma. C. Proximal sigmoid colon polyp, biopsy: Tubular adenoma. LUCIO:funmilayo 01/30/20 MICROSCOPIC DESCRIPTION Slides are reviewed. GROSS DESCRIPTION A - Received in fixative is one container labeled with the patient's name and designated cecum/ileocecal valve polyp. The specimen consists of multiple irregular fragments of light rodriguez soft tissue that in aggregate measure 1 x 1 x 0.1 cm. The specimen is totally submitted in one cassette. B - Received in fixative is one container labeled with the patient's name and designated distal transverse polyp. The specimen consists of multiple irregular fragments of light rodriguez soft tissue that in aggregate measure 1 x 0.5 x 0.1 cm. The specimen is totally submitted in one cassette. C - Received in fixative is one container labeled with the patient's name and designated proximal sigmoid polyp biopsy. The specimen consists of two irregular fragments of light rodriguez soft tissue that in aggregate measure 0.6 x 0.4 x 0.1 cm. The specimen is totally submitted in one cassette. / LUCIO:funmilayo 01/29/20 TC:1 CPT: 21517 x3
[2020-01-29 07:00] VITALS: BP 110/67; BP 139/97; PULSE 59; RESP 14; TEMP 36.1; O2SAT 100
--- NOTE | 2020-01-29 07:00 | OP.COLON_ITS ---
Patient Name: Aram Holcomb Procedure Date: 01/29/2020 5:41 AM Date of : 1945 Age: 75 Procedure: Colonoscopy Indications: High risk colon cancer surveillance: Personal history of colonic polyps Providers: Marino Ontiveros MD Medicines: See the Anesthesia note for documentation of the administered medications Patient Profile: Last Colonoscopy: 2016. Complications: No immediate complications. Procedure: Pre-Anesthesia Assessment: - Prior to the procedure, a History and Physical was performed, and patient medications and allergies were reviewed. The patient's tolerance of previous anesthesia was also reviewed. The risks and benefits of the procedure and the sedation options and risks were discussed with the patient. All questions were answered, and informed consent was obtained. Prior Anticoagulants: The patient has taken Coumadin (warfarin), last dose was 2 days prior to procedure. ASA Grade Assessment: III - A patient with severe systemic disease. After reviewing the risks and benefits, the patient was deemed in satisfactory condition to undergo the procedure. After I obtained informed consent, the scope was passed under direct vision. Throughout the procedure, the patient's blood pressure, pulse, and oxygen saturations were monitored continuously. The pediatric colonoscope was introduced through the anus and advanced to the cecum, identified by appendiceal orifice and ileocecal valve. The colonoscopy was performed without difficulty. The patient tolerated the procedure well. The quality of the bowel preparation was good. The ileocecal valve and the appendiceal orifice were photographed. Scope In: 6:34:24 AM Scope Withdrawal Time 0 hours 15 minutes 54 seconds Scope Out: 6:53:54 AM Total Procedure Duration Time 0 hours 19 minutes 30 seconds Findings: The digital rectal exam findings include non-thrombosed external hemorrhoids, non-thrombosed internal hemorrhoids and internal hemorrhoids that prolapse with straining, but spontaneously regress to the resting position (Grade II). Pertinent negatives include normal prostate (size, shape, and consistency). A 12 mm polyp was found in the ileocecal valve. The polyp was sessile. The polyp was removed with a cold snare. Resection and retrieval were complete. A 6 mm polyp was found in the distal transverse colon. The polyp was sessile. The polyp was removed with a cold biopsy forceps. Resection and retrieval were complete. A 5 mm polyp was found in the proximal sigmoid colon. The polyp was sessile. The polyp was removed with a cold biopsy forceps. Resection and retrieval were complete. Scattered diverticula were found in the sigmoid colon. Impression: - Non-thrombosed external hemorrhoids, non-thrombosed internal hemorrhoids and internal hemorrhoids that prolapse with straining, but spontaneously regress to the resting position (Grade II) found on digital rectal exam. - One 12 mm polyp at the ileocecal valve, removed with a cold snare. Resected and retrieved. - One 6 mm polyp in the distal transverse colon, removed with a cold biopsy forceps. Resected and retrieved. - One 5 mm polyp in the proximal sigmoid colon, removed with a cold biopsy forceps. Resected and retrieved. - Diverticulosis in the sigmoid colon. Recommendation: - Discharge patient to home. - Resume previous diet. - Continue present medications. - Repeat colonoscopy in 5 years for surveillance based on pathology results. - Telephone my office for pathology results in 1 week. Procedure Code(s): --- Professional --- 45763, Colonoscopy, flexible; with removal of tumor(s), polyp(s), or other lesion(s) by snare technique 34547, 59, Colonoscopy, flexible; with biopsy, single or multiple Diagnosis Code(s): --- Professional --- Z86.010, Personal history of colonic polyps K64.1, Second degree hemorrhoids K64.4, Residual hemorrhoidal skin tags D12.0, Benign neoplasm of cecum D12.3, Benign neoplasm of transverse colon (hepatic flexure or splenic flexure) D12.5, Benign neoplasm of sigmoid colon K57.30, Diverticulosis of large intestine without perforation or abscess without bleeding CPT copyright 2017 [employer]. All rights reserved. The codes documented in this report are preliminary and upon fruit grading supervisor review may be revised to meet current compliance requirements. Marino Ontiveros MD 01/29/2020 7:00:31 AM This report has been signed electronically. Number of Addenda: 0 Note Initiated On: 01/29/2020 5:41 AM
--- NOTE | 2020-01-29 07:01 | OP.CCLET_ITS ---
01/29/2020 Rukhsana Melo [address] [place] [address] Re : Colonoscopy procedure for Aram Holcomb Dear Dr. Melo This procedure was performed on Wednesday, January 29, 2020. My impressions and recommendations are as follows: Impressions : - Non-thrombosed external hemorrhoids, non-thrombosed internal hemorrhoids and internal hemorrhoids that prolapse with straining, but spontaneously regress to the resting position (Grade II) found on digital rectal exam. - One 12 mm polyp at the ileocecal valve, removed with a cold snare. Resected and retrieved. - One 6 mm polyp in the distal transverse colon, removed with a cold biopsy forceps. Resected and retrieved. - One 5 mm polyp in the proximal sigmoid colon, removed with a cold biopsy forceps. Resected and retrieved. - Diverticulosis in the sigmoid colon. Recommendations : - Discharge patient to home. - Resume previous diet. - Continue present medications. - Repeat colonoscopy in 5 years for surveillance based on pathology results. - Telephone my office for pathology results in 1 week. My findings are described in the full procedure note, which is enclosed. If I can be of further assistance, please feel free to contact me at Doctor phone number(s): Work: . Sincerely, Marino Ontiveros MD 01/29/2020 7:00:31 AM This report has been signed electronically.
[2020-01-29 07:05] VITALS: BP 139/97; BP 95/58; PULSE 59; RESP 16; O2SAT 98
[2020-01-29 07:10] VITALS: BP 103/70; BP 139/97; PULSE 59; RESP 16; O2SAT 96
[2020-01-29 07:15] VITALS: BP 119/74; BP 139/97; PULSE 94; RESP 16; TEMP 36.6; O2SAT 95
[2020-01-29 07:15] LABS: Prothrombin Time Fingerstick 16.3 SEC (11.9-14.4)
[2020-01-29] MEDS: Enoxaparin 80 MG/0.8 ML Syringe SC (07:45)
--- NOTE | 2020-01-29 07:49 | SUR.PHASEII ---
pt instructed to start coumadin today per dr. adair instructions. also to have inr checked tomorrow.
[2020-01-29 07:51] VITALS: BP 139/97
== END 2020-01-29 07:53 | disposition home or self-care (01) ==
LOC: EN 05:32 → ACINP 05:37 → AC 05:38
PROVIDERS: Anesthesiology; PCP Family Medicine; Referring Provider Family Medicine; Visit Provider Surgery
PROC: 0DJD8ZZ Inspection of Lower Intestinal Tract, Via Natural or Artificial Opening Endoscopic (ICD-10-PCS; CPT 45378; principal; 2020-01-29 06:25)
DX: D12.0 Benign neoplasm of cecum (principal); D12.3 Benign neoplasm of transverse colon; D12.5 Benign neoplasm of sigmoid colon; K57.30 Diverticulosis of large intestine without perforation or abscess without bleeding; K64.1 Second degree hemorrhoids; K64.4 Residual hemorrhoidal skin tags; Z86.010 Personal history of colon polyps; Z80.0 Family history of malignant neoplasm of digestive organs; Z11.59 Encounter for screening for other viral diseases; K21.9 Gastro-esophageal reflux disease without esophagitis; M06.9 Rheumatoid arthritis, unspecified; Z85.528 Personal history of other malignant neoplasm of kidney; Z95.2 Presence of prosthetic heart valve; Z79.01 Long term (current) use of anticoagulants; Z79.82 Long term (current) use of aspirin; Z79.899 Other long term (current) drug therapy; Z87.891 Personal history of nicotine dependence
CPT/HCPCS: 45380; 45385; 36416; 85610; 87635; 88305; G2023; J7120; J2405; U0003

== ENCOUNTER → 2020-02-06 08:03 | Outpatient (CLI) | payer MEDICARE, OTHER, SELFPAY ==
[2020-01-16 16:00] VITALS: BMI 27.6
[2020-01-29 05:45] VITALS: BMI 27.0
--- NOTE | 2020-02-06 08:04 | ECHOD_ITS ---
Reason For Study: VALVE REPLACEMENT EVAL Procedure This was a 2D Doppler, Color Flow transthoracic echocardiogram. Exam performed in department. Left Ventricle Normal LV size. Left ventricular systolic function is normal. The estimated ejection fraction is 65 %. Stage 1 diastolic dysfunction. No regional wall motion abnormalities noted. Right Ventricle Normal RV size. Normal systolic function. Atria Normal left atrium. Normal right atrium. Mitral Valve Stable appearing mechanical mitral valve apparatus. Tricuspid Valve Normal tricuspid valve. Aortic Valve Trisinus/trileaflet aortic valve. Trivial aortic valve insufficiency. Pulmonic Valve The pulmonic valve is not well visualized. Great Vessels Normal aortic root. The pulmonary artery is normal size. Inferior vena cava collapse with respiration. Pericardium/Pleural No pericardial effusion. MMode/2D Measurements & Calculations LVIDd: 4.2 cm IVSd: 1.1 cm Ao root diam: 3.4 cm LVIDs: 2.8 cm LVPWd: 1.1 cm RVDd: 4.3 cm FS: 34.9 % LAV(MOD-bp): 53.1 ml LVAd ap4: 29.4 cm2 SV(MOD-sp4): 57.5 ml LAV(MOD-bp) Indexed: 27.8 ml/m2 EDV(MOD-sp4): 95.9 ml LAV(MOD-sp2): 58.1 ml EDV(sp4-el): 99.5 ml LAV(MOD-sp4): 41.3 ml LVAs ap4: 17.3 cm2 ESV(MOD-sp4): 38.4 ml ESV(sp4-el): 39.1 ml EF(MOD-sp4): 60.0 % EF(sp4-el): 60.7 % SV(sp4-el): 60.4 ml LA A4 area: 15.0 cm2 LA dimension(2D): 3.9 cm RA A4 area: 12.0 cm2 Time Measurements MV dec time: 0.26 sec Doppler Measurements & Calculations MV E max jonathon: 106.3 cm/sec Lat Peak E' Jonathon: 10.5 cm/sec Med Peak E' Jonathon: 6.9 cm/sec MV A max jonathon: 110.1 cm/sec E/E' lat: 10.2 E/E' med: 15.4 MV E/A: 0.97 MV V2 max: 117.1 cm/sec MV P1/2t max jonathon: 111.7 cm/sec Ao V2 max: 124.9 cm/sec MV max P.5 mmHg MV P1/2t: 81.9 msec Ao max P.2 mmHg MV V2 mean: 61.8 cm/sec MV mean P.0 mmHg MV dec slope: 399.4 cm/sec2 MV V2 VTI: 37.0 cm MVA(P1/2t): 2.7 cm2 LV V1 max: 83.1 cm/sec PA V2 max: 83.2 cm/sec TR max jonathon: 190.3 cm/sec LV V1 max P.8 mmHg TR max P.5 mmHg Interpretation Summary Normal LV size. Left ventricular systolic function is normal. The estimated ejection fraction is 65 %. Stable appearing mechanical mitral valve apparatus. Stage 1 diastolic dysfunction. Ordering Physician: Yosef Maloney Referring Physician: KELLI HANSON Performed By: Silva Prakash RDCS
== END ==
PROVIDERS: PCP Family Medicine; Referring Provider Internal Medicine Cardiovascular Disease; Visit Provider Internal Medicine Cardiovascular Disease
DX: Z95.2 Presence of prosthetic heart valve (principal)
CPT/HCPCS: 93306

== ENCOUNTER 2020-08-31 01:14 | Emergency (ER) | payer MEDICARE, OTHER, SELFPAY ==
[2020-08-31 01:15] VITALS: BP 161/91; PULSE 73; RESP 16; TEMP 36.3; O2SAT 97; BMI 27.1
[2020-08-31] MEDS: Oxymetazoline 0.05% 1 SPRAY SPRAY.BTL 2 SPRAY NASAL (01:57)
[2020-08-31] MEDS: Cephalexin 250 MG Capsule 500 MG PO (01:57)
--- NOTE | 2020-08-31 02:41 | ED.VISSUMM ---
- ER Visit Summary Date of Service: 08/31/20 Chief Complaint: Nosebleed History of Present Illness: The patient is a 75 M with a right-sided nosebleed that started this evening. No other complaints. He does take Coumadin with an INR goal of 2.5-3.5. His last check was earlier this week and it was 3.9. Physical Examination: Afebrile vital signs unremarkable. Oozing bright red blood from the right nostril. Otherwise unremarkable exam. Test Results: None performed Emergency Department Course and Treatment: Patient was treated with lidocaine and Afrin. He tolerated this well. He was able to blow his nose and passed a large clot. Packing was applied with a rapid Rhino. This stopped almost all the bleeding. He did have some very mild anterior oozing after observation. Will apply direct pressure. Will follow up with ENT later this week. He was placed on Keflex prophylaxis and was advised that this can raise his INR, and he will have it rechecked if he has continued bleeding. Treatment Plan: As above Disposition: Discharge Impression: Right anterior epistaxis This note was generated with [employer] dictation software. It may contain incorrect words, spelling, and punctuation that were not noted in review of the chart prior to signing ED Disposition - Plan for ED Patient: Referrals: Rukhsana Melo MD [Primary Care Provider] -
--- NOTE | 2020-08-31 02:43 | ED.DEP ---
ED Disposition - Plan for ED Patient: Instructions: Nosebleed Prescriptions: Cephalexin [Keflex] 500 mg PO Q12 3 Days #6 cap Prescription Printed Referrals: Lukas Busby MD [STAFF PHYSICIAN] -
== END 2020-08-31 02:56 | disposition home or self-care (01) ==
PROVIDERS: Emergency Provider Emergency Medicine; PCP Family Medicine
DX: R04.0 Epistaxis (principal)
CPT/HCPCS: 99283

== ENCOUNTER 2020-08-31 22:16 | Emergency (ER) | payer MEDICARE, OTHER, SELFPAY ==
[2020-08-31 01:15] VITALS: BMI 27.1
[2020-08-31 22:17] VITALS: BP 155/94; PULSE 71; RESP 16; TEMP 36.2; O2SAT 99; BMI 27.1
--- NOTE | 2020-08-31 22:42 | ED.DCSUM_ITS ---
- ER Visit Summary Date of Service: 08/31/20 Chief Complaint: Nosebleed History of Present Illness: The patient is a 75 M presenting with nosebleed. Patient was seen in the ED yesterday for the same. Yesterday he began having bleeding from his right naris. He presented to the ED and nasal packing was franklin lisha. He states this afternoon he started having bleeding from his left naris. He is on Coumadin. His last INR check was 3.9. Denies other complaints. Physical Examination: Vitals are stable. Patient is afebrile. Alert no acute distress. HEENT exam right nasal packing in place. No blood in the posterior pharynx. Neck is supple. Lungs are clear and equal bilaterally. Heart is regular rate and rhythm. Abdomen is soft nontender nondistended. Extremities are unremarkable. Skin is warm and dry. No focal neurologic deficit. Remainder of exam is unremarkable. Emergency Department Course and Treatment: Rhino Rocket was removed. Direct pressure was applied. Patient blew his nose to clear the clots. Cotton swab soaked with Ramón mix was instilled into right naris. Bleeding appears to be anterior right septum. Rhino Rocket was replaced. He continues to have bleeding around the Rhino Rocket. This was removed and area was cauterized. Patient was observed in the ED. INR is 3.7. When standing patient began to have bleeding again. Posterior Rhino Rocket was placed. Patient continues to have slow oozing around the packing. We currently have no ENT on-call. Discussed with [facility] for transfer for ENT evaluation. Disposition: Transfer Impression: Epistaxis This note was generated with [employer] dictation software. It may contain incorrect words, spelling, and punctuation that were not noted in review of the chart prior to signing ED Disposition - Plan for ED Patient: Referrals: Rukhsana Melo MD [Primary Care Provider] -
[2020-08-31] MEDS: Mixture 30 ML Bottle TOPICAL (22:49)
[2020-08-31 23:03] LABS: International Normalized Ratio 3.7; Prothrombin Time (Protime)PT. 36.8 SECONDS (11.7-14.9)
[2020-09-01 02:00] VITALS: BP 138/86; PULSE 75; RESP 15; TEMP 36.5; O2SAT 96
[2020-09-01 02:16] VITALS: BP 138/86; PULSE 75; RESP 15; TEMP 36.5; O2SAT 96
== END 2020-09-01 02:10 | disposition short-term general hospital (02) ==
LOC: ED 23:03
PROVIDERS: Emergency Provider Emergency Medicine; PCP Family Medicine
DX: R04.0 Epistaxis (principal); I10 Essential (primary) hypertension; E78.00 Pure hypercholesterolemia, unspecified; Z79.01 Long term (current) use of anticoagulants; Z79.899 Other long term (current) drug therapy
CPT/HCPCS: 30903; 85610; 99283; 99285; A4216

== ENCOUNTER → 2020-09-02 10:53 | Outpatient (CLI) | payer MEDICARE, OTHER, SELFPAY ==
[2020-08-31 22:17] VITALS: BMI 27.1
[2020-09-02 12:51] LABS: Absolute Lymphocyte Count 1.48 X10^3/uL (0.83-4.51); Absolute Neutrophil Count 17.5 X10^3/uL (2.0-7.7); Basophil# 0.08 X10^3/uL; Basophil% 0.4 % (0-1); Eosinophil# 0.02 X10^3/uL; Eosinophils% 0.1 % (0-5); Hematocrit 37.9 % (40-54); Hemoglobin 12.2 g/dL (13.0-16.5); Lymphocyte # 1.48 X10^3/ul (4.0); Lymphocyte % 7.3 % (19-41); Mean Corp Hgb Conc 32.2 g/dL (32-36); Mean Corpuscular Hgb 27.1 pg (27.0-32.0); Mean Corpuscular Volume 84.2 fL (80-94); Mean Platelet Vol. 11.5 fl (6.2-12.0); Monocyte# 1.18 X10^3/uL; Monocyte% 5.8 % (0-10); NRBC Flagged by Analyzer 0 % (0-5); Neutrophil # 17.51 X10^3/uL (2.7-7.7); Neutrophil % 85.8 % (47-70); Platelet Count 415 K/mm3 (150-450); RBC Distribution Width CV 14.2 % (11.6-14.6); RBC Distribution Width SD 43.4 fl (35.1-43.9); White Blood Count 20.4 K/mm3 (4.4-11.0)
[2020-09-02 13:12] LABS: ALB/GLOB Ratio 0.9 RATIO (0.9-2.4); AST(SGOT) 30 U/L (15-37); Alanine Aminotransfer ALT/SGPT 32 U/L (16-61); Albumin, Serum 3.7 g/dL (3.2-5.0); Alkaline Phosphatase 61 U/L (45-117); Anion Gap 6 (5-15); BUN 27 mg/dL (7-18); BUN/Creat Ratio 22.1 RATIO (10-20); Calcium,Total 8.8 mg/dL (8.5-10.1); Chloride 101 mmol/L (98-107); Creatinine, Serum 1.22 mg/dL (0.70-1.30); EST Glomerular Filtration Rate 62 mL/min (>60); Est Glom Filt Rate - Afr Amer 75 mL/min (>60); Globulin 3.9 g/dL (2.2-4.2); Glucose 97 mg/dL (74-106); Potassium 4.3 mmol/L (3.5-5.1); Protein, Total 7.6 g/dL (6.4-8.2); Sodium Level 135 mmol/L (136-145)
== END ==
PROVIDERS: PCP Family Medicine; Visit Provider Family Medicine
DX: R04.0 Epistaxis (principal); E16.2 Hypoglycemia, unspecified
CPT/HCPCS: 36415; 80053; 85025

== ENCOUNTER → 2020-09-11 08:39 | Outpatient (CLI) | payer MEDICARE, OTHER, SELFPAY ==
[2020-08-31 22:17] VITALS: BMI 27.1
[2020-09-11 10:08] LABS: Absolute Lymphocyte Count 1.89 X10^3/uL (0.83-4.51); Absolute Neutrophil Count 4.7 X10^3/uL (2.0-7.7); Basophil# 0.05 X10^3/uL; Basophil% 0.7 % (0-1); Eosinophil# 0.16 X10^3/uL; Eosinophils% 2.1 % (0-5); Hematocrit 36.7 % (40-54); Hemoglobin 11.5 g/dL (13.0-16.5); Lymphocyte # 1.89 X10^3/ul (4.0); Lymphocyte % 25.4 % (19-41); Mean Corp Hgb Conc 31.3 g/dL (32-36); Mean Corpuscular Hgb 26.8 pg (27.0-32.0); Mean Corpuscular Volume 85.5 fL (80-94); Mean Platelet Vol. 11.7 fl (6.2-12.0); Monocyte# 0.64 X10^3/uL; Monocyte% 8.6 % (0-10); NRBC Flagged by Analyzer 0 % (0-5); Neutrophil # 4.66 X10^3/uL (2.7-7.7); Neutrophil % 62.5 % (47-70); Platelet Count 292 K/mm3 (150-450); RBC Distribution Width CV 15.4 % (11.6-14.6); RBC Distribution Width SD 47.2 fl (35.1-43.9); Red Blood Count 4.29 M/mm3 (4.6-6.2); White Blood Count 7.5 K/mm3 (4.4-11.0)
[2020-09-11 10:19] LABS: International Normalized Ratio 1.6; Prothrombin Time (Protime)PT. 18.7 SECONDS (11.7-14.9)
== END ==
PROVIDERS: PCP Family Medicine; Referring Provider Family Medicine; Visit Provider Family Medicine
DX: R04.0 Epistaxis (principal); I35.9 Nonrheumatic aortic valve disorder, unspecified
CPT/HCPCS: 36415; 85025; 85610

== ENCOUNTER 2021-06-08 07:46 | Emergency (ER) | payer MEDICARE, OTHER, SELFPAY ==
[2021-06-08 07:49] VITALS: BP 151/82; PULSE 63; RESP 17; TEMP 36.1; O2SAT 99; BMI 28.5
--- NOTE | 2021-06-08 08:08 | ED.VIS.LOWEX ---
HPI History of Present Illness Chief Complaint: Lower Extremity Injury Informant: patient Onset/Context/Timing Onset: Yesterday Context: Gradual Onset (While walking dog and yard) Timing: Continuous Quality of Pain: Aching Location: Right knee Current Severity: Moderate Maximum Severity: Moderate Worsened by: Walking, bending knee Relieved by: Remaining still Associated Symptoms Associated Symptoms: Negative for Parasthesia, Weakness and Loss of Funtion Narrative Narrative: 76-year-old male is on warfarin because of a mechanical heart valve, had spontaneous onset of right knee swelling last night. This occurred while he was walking his dog in his yard and he had no twists, missteps, or any other injury although he states he has been doing a lot of walking in the last couple days. Last night he applied heat to it for a while after this. This morning the swelling is worse so he presents for evaluation. Denies any fevers, chills, systemic symptoms, other illness, or any injury. [facility] Medical History (Updated 06/08/21 @ 08:[address] Benoit Caraballo MD) Back pain Essential hypertension Family history of malignant neoplasm of colon in mother Hemorrhoid History of cerebral hemorrhage History of colonic polyps History of kidney cancer Hyperlipidemia Nonrheumatic mitral (valve) insufficiency Nonrheumatic mitral (valve) prolapse Rheumatoid arthritis TIA (transient ischemic attack) (12/2015) Home Medications pravastatin 40 mg PO DAILY 07/25/13 [History Last Taken 07/24/13] aspirin 81 mg tablet,delayed release 81 mg PO MOFR 10/26/16 [History Last Taken Unknown] docusate sodium 100 mg PO DAILY 10/26/16 [History Last Taken Unknown] omeprazole 20 mg capsule,delayed release 20 mg PO DAILY 01/16/20 [History Last Taken Unknown] warfarin 1 mg tablet 3 mg PO SUTUWETHSA 01/16/21 [History Last Taken Unknown] warfarin 4 mg tablet 5 mg PO MOFR tab 01/16/21 [History Last Taken Unknown] acetaminophen-codeine 1 - 2 tab PO Q6H PRN 2 Days #14 tab 06/08/21 [Rx Last Taken Unknown] Allergy/AdvReac Type Severity Reaction Status Date / Time procaine [From Novocain] Allergy Swelling Verified 06/08/21 07:47 simvastatin [From Zocor] Allergy Other Verified 06/08/21 07:47 IVP dye Allergy Severe Unknown Uncoded 06/08/21 07:47 Family History Mother Colon cancer Breast cancer CAD (coronary artery disease) Hypertension Brother Hypertension Diabetes Surgical History History of colonoscopy with polypectomy (10/2016) History of heart valve replacement History of mitral valve replacement (1999) History of nephrectomy History of sinus surgery History of tonsillectomy and adenoidectomy Mitral valve replaced Social History Smoking Status: Never smoker how long ago did patient quit smokin alcohol intake: current substance use type: does not use ROS ROS ED Constitutional Constitutional ED: Denies chills or fever(s) Musculoskeletal Musculoskeletal: Reports extremity pain; Denies neck pain Integumentary Denies Abrasions, rash or wounds Neurologic Neurologic: Denies paresthesias or weakness Hematologic/Lymphatic Hematologic/Lymphatic: Reports easy bleeding and easy bruising EXAM Physical Exam Const Vital Signs: 06/08/21 07:49 Temperature 96.9 F L Temperature Source Temporal Pulse Rate 63 Respiratory Rate 17 Blood Pressure 151/82 H Blood Pressure Mean 105 Pulse Ox 99 Oxygen Delivery Method Room Air Positive well nourished and well developed General Appearance ED: well developed and NAD Neck full ROM and supple Cardio Cardio Narrative: 2+/4 dorsalis pedis pulses bilaterally Back/Spine normal ROM and normal to inspection Extremity Extremity Narrative: Visible and palpable effusion of right knee. Almost full range of motion, able to bend to 90 degrees or more with little difficulty. Normal nonpainful short arc range of motion. Full extension with extensor mechanism intact. All ligaments stable with short endpoints and no pain on stressing including ACL/PCL. Right knee normal-appearing, slightly warmer than the contralateral. No ecchymosis or purpura no tenderness. No calf tenderness, all lower leg and thigh compartments soft and nontender nondistended. Neuro oriented x3, no focal motor deficits and no sensory deficits noted Sensorium / Orientation: alert Psych mental status grossly normal and thought process normal Skin no wounds Skin Narrative: No lesions or discoloration right knee including erythema Rashes: no rashes MDM MDM MDM Narrative Medical decision making narrative: INR therapeutic at 3.2, obviously since he has a mechanical heart valve he is not able to discontinue or decrease this dosing. While checking out we ran some other labs, ESR, CRP, CBC. All within normal limits as below. This concurs with my exam which is less suspicious for infection or crystal induced arthritis given how well he is moving it. In my opinion it is more likely to be a hemarthrosis, may be from relative overuse and his coagulopathy. Given the risk-benefit profile, I would not recommend an arthrocentesis at this time which I discussed with him. I discussed that is possible that it would help to diagnose the problem, but I do not think that would outweigh the risk of making it worse given his coagulopathy and I would advise ice and rest. He probably made it worse applying heat to it for an extended period of time which I advised against. I do not think he needs x-rays, he had no injury to suggest a fracture here, and he has an obvious effusion that I do not need an x-ray to diagnose. Advise outpatient follow-up with orthopedics if he is not getting better after a week of rest and icing. Given an Valentin wrap and a prescription for some [place] (he would rather have T#3) which I gave him here as well.. Lab Data Attestation: I reviewed the patient's lab results. Labs: Laboratory Results - last 24 hr 06/08/21 06/08/21 06/08/21 07:15 07:15 07:15 WBC 7.8 RBC 5.37 Hgb 14.0 Hct 43.2 MCV 80.4 MCH 26.1 L MCHC 32.4 RDW Std Deviation 46.6 H RDW Coeff of Dannie 16.1 H Plt Count 181 MPV 11.5 Immature Gran % (Auto) 0.300 Neut % (Auto) 71.7 H Lymph % (Auto) 19.3 [place] % (Auto) 5.8 Eos % (Auto) 2.3 Baso % (Auto) 0.6 Absolute Neuts (auto) 5.6 Absolute Lymphs (auto) 1.50 Nucleated RBC % 0 ESR 3 PT 32.2 H INR 3.2 C-React Prot Ext Range < 2.90 Discharge Plan Triage Chief Complaint: Lower Extremity Injury ED Provider: Benoit Caraballo Dx/Rx/DC Orders Clinical Impression: Effusion of right knee joint, Warfarin-induced coagulopathy Instructions: ED Knee Effusion Prescriptions: New acetaminophen-codeine 300-30 mg tablet 1 - 2 tab PO Q6H PRN (Reason: pain) 2 Days Qty: 14 RF: 0 No Action omeprazole 20 mg capsule,delayed release(DR/EC) 20 mg PO DAILY RF: 0 warfarin 1 mg tablet 3 mg PO SUTUWETHSA RF: 0 pravastatin 40 MG tablet 40 mg PO DAILY RF: 0 warfarin 4 mg tablet 5 mg PO MOFR RF: 0 docusate sodium 100 MG capsule 100 mg PO DAILY RF: 0 aspirin 81 MG tablet 81 mg PO MOFR RF: 0 Hold Instructions: nosebleeds Primary Care Provider: Rukhsana Melo Referrals: Rukhsana Melo MD [Primary Care Provider] - Marv Garcia DO [STAFF PHYSICIAN] - 1 Week if not improving Activity Restrictions/Additional Instructions: Rest and ice. DO NOT apply heat. Do not stop your warfarin since you have a mechanical heart valve. You may use the pain medication as needed, no ibuprofen. Disposition Disposition: Home, Self Care
[2021-06-08] MEDS: HYDROcodone Bitartrate/Apap 5/325 Tablet PO (08:17)
[2021-06-08 08:27] LABS: Absolute Neutrophil Count 5.6 X10^3/uL (2.0-7.7); Basophil# 0.05 X10^3/uL; Basophil% 0.6 % (0-1); Eosinophil# 0.18 X10^3/uL; Eosinophils% 2.3 % (0-5); Erythrocyte Sedimentation Rate 3 mm/hr (0-20); Hematocrit 43.2 % (40-54); Lymphocyte % 19.3 % (19-41); Mean Corp Hgb Conc 32.4 g/dL (32-36); Mean Corpuscular Hgb 26.1 pg (27.0-32.0); Mean Corpuscular Volume 80.4 fL (80-94); Mean Platelet Vol. 11.5 fl (6.2-12.0); Monocyte# 0.45 X10^3/uL; Monocyte% 5.8 % (0-10); NRBC Flagged by Analyzer 0 % (0-5); Neutrophil # 5.59 X10^3/uL (2.7-7.7); Neutrophil % 71.7 % (47-70); Platelet Count 181 K/mm3 (150-450); RBC Distribution Width CV 16.1 % (11.6-14.6); RBC Distribution Width SD 46.6 fl (35.1-43.9); Red Blood Count 5.37 M/mm3 (4.6-6.2); White Blood Count 7.8 K/mm3 (4.4-11.0)
[2021-06-08 08:32] LABS: International Normalized Ratio 3.2; Prothrombin Time (Protime)PT. 32.2 SECONDS (11.7-14.9)
[2021-06-08 08:35] LABS: CRP < 2.90 mg/L (0.0-3.0)
== END 2021-06-08 09:09 | disposition home or self-care (01) ==
PROVIDERS: Emergency Provider Emergency Medicine; PCP Family Medicine
DX: M25.461 Effusion, right knee (principal); D68.9 Coagulation defect, unspecified; T45.515A Adverse effect of anticoagulants, initial encounter; Y92.9 Unspecified place or not applicable; I10 Essential (primary) hypertension; E78.5 Hyperlipidemia, unspecified; I34.1 Nonrheumatic mitral (valve) prolapse; M06.9 Rheumatoid arthritis, unspecified; Z85.528 Personal history of other malignant neoplasm of kidney; Z87.19 Personal history of other diseases of the digestive system; Z86.73 Personal history of transient ischemic attack (TIA), and cerebral infarction without residual deficits; Z95.2 Presence of prosthetic heart valve; Z79.01 Long term (current) use of anticoagulants; Z79.82 Long term (current) use of aspirin; Z79.899 Other long term (current) drug therapy
CPT/HCPCS: 85025; 85610; 85652; 86140; 99283; A4216

== ENCOUNTER → 2021-06-10 14:29 | Outpatient (CLI) | payer MEDICARE, OTHER, SELFPAY ==
--- NOTE | 2021-06-10 14:32 | RAD_ITS ---
STUDY: X-RAY - RIGHT KNEE REASON FOR EXAM: Male, 76 years old. Knee effusion. Pain. TECHNIQUE: 4 view(s) of the knee. COMPARISON: 08/12/2012. FINDINGS: Osteopenia. Normal visualized distal femur. Normal visualized proximal tibia and fibula. Normal proximal tibiofibular articulation. Normal medial femorotibial compartment. Normal lateral femorotibial compartment. Normal patellofemoral articulation. The soft tissue structures are unremarkable. RAD/Knee 4 or More Views IMPRESSION: Osteopenia with no other abnormality present. Electronically Signed: Huseyin Nunez MD at 9:49 EDT , Service support ,
== END ==
PROVIDERS: PCP Family Medicine; Referring Provider Registered Nurse; Visit Provider Registered Nurse
DX: M25.461 Effusion, right knee (principal)
CPT/HCPCS: 73564

== ENCOUNTER → 2021-08-07 14:48 | Outpatient (CLI) | payer MEDICARE, OTHER, SELFPAY ==
[2021-08-07 17:22] LABS: Absolute Lymphocyte Count 1.63 X10^3/uL (0.83-4.51); Absolute Neutrophil Count 5.1 X10^3/uL (2.0-7.7); Basophil# 0.05 X10^3/uL; Basophil% 0.7 % (0-1); Eosinophil# 0.18 X10^3/uL; Eosinophils% 2.4 % (0-5); Hemoglobin 14.6 g/dL (13.0-16.5); Lymphocyte # 1.63 X10^3/ul (0.83-4.51); Lymphocyte % 21.7 % (19-41); Mean Corp Hgb Conc 32.4 g/dL (32-36); Mean Corpuscular Hgb 26.2 pg (27.0-32.0); Mean Corpuscular Volume 80.8 fL (80-94); Mean Platelet Vol. 12.9 fl (6.2-12.0); Monocyte# 0.58 X10^3/uL; Monocyte% 7.7 % (0-10); NRBC Flagged by Analyzer 0 % (0-5); Neutrophil # 5.06 X10^3/uL (2.7-7.7); Neutrophil % 67.2 % (47-70); Platelet Count 206 K/mm3 (150-450); RBC Distribution Width SD 44.2 fl (35.1-43.9); Red Blood Count 5.57 M/mm3 (4.6-6.2); White Blood Count 7.5 K/mm3 (4.4-11.0)
[2021-08-07 17:45] LABS: ALB/GLOB Ratio 1.1 RATIO (0.9-2.4); AST(SGOT) 32 U/L (15-37); Alanine Aminotransfer ALT/SGPT 34 U/L (16-61); Albumin, Serum 3.9 g/dL (3.2-5.0); Alkaline Phosphatase 54 U/L (45-117); Anion Gap 8 (5-15); BUN 18 mg/dL (7-18); BUN/Creat Ratio 15.9 RATIO (10-20); Calcium,Total 8.7 mg/dL (8.5-10.1); Chloride 104 mmol/L (98-107); Cholesterol 193 mg/dL (200); Creatinine, Serum 1.13 mg/dL (0.70-1.30); EST Glomerular Filtration Rate 67 mL/min (>60); Est Glom Filt Rate - Afr Amer 82 mL/min (>60); Globulin 3.5 g/dL (2.2-4.2); Glucose 75 mg/dL (74-106); High Density Lipoprotein 65 mg/dL; Potassium 4.2 mmol/L (3.5-5.1); Protein, Total 7.4 g/dL (6.4-8.2); Sodium Level 138 mmol/L (136-145); Triglycerides 92 mg/dL; Very Low Density Lipoprotein 18 mg/dL (5-40)
== END ==
PROVIDERS: PCP Family Medicine; Referring Provider Family Medicine; Visit Provider Family Medicine
DX: Z01.818 Encounter for other preprocedural examination (principal); Z11.59 Encounter for screening for other viral diseases
CPT/HCPCS: 36415; 80053; 80061; 85025; 87635; U0005; U0003

== ENCOUNTER → 2021-08-12 06:06 | Outpatient (CLI) | payer MEDICARE, OTHER, SELFPAY ==
--- NOTE | 2021-08-12 12:55 | STRESSREP ---
Stress Test Report Pharmacologic myocardial perfusion stress test. Preoperative cardiac cardiac evaluation. Stress protocol: Resting KG demonstrates sinus bradycardia with a rate of 58 bpm T wave inversions are noted in lead III and aVF. Resting blood pressure is 140/90 mmHg. 0.4 mg of regadenoson was infused per usual protocol followed by rapid intravenous saline flush injection continuous EKG monitoring was performed. The maximum heart rate attained was 73 bpm which was 50% of maximum predicted heart rate the maximum workload was 1 metabolic equivalent. At rest there were no ST or T wave changes noted to suggest abnormal flow reserve and at peak infusion nonspecific ST changes were noted with did not meet the criteria for abnormal flow reserve. The maximum blood pressure is 142/86 mmHg. Myocardial perfusion protocol. 12.0 mCi of technetium 99m sestamibi was injected at rest. 0.4 mg of regadenoson was infused per usual protocol. At peak infusion 34.0 mCi of technetium 99m sestamibi was injected stress images were obtained stress and rest images were reconstructed and compared in the short axis vertical long horizontal long axis. Gated images were also obtained per Perfusion SPECT analysis: Review of the stress images demonstrate reduction of perfusion in the inferior wall. The rest of the jacobo appear to be normally perfused. The resting images demonstrate improved perfusion noted all over including the inferior wall. There is also significant GI attenuation artifact noted. Inferior ischemia cannot be completely excluded. Gated SPECT analysis: The gated ejection fraction is 71%. Conclusion: Abnormal pharmacologic myocardial perfusion stress test with probable inferior ischemia and a medium size zone. Preserved ejection fraction.
== END ==
PROVIDERS: PCP Family Medicine; Referring Provider Family Medicine; Visit Provider Family Medicine
DX: Z01.818 Encounter for other preprocedural examination (principal); R94.39 Abnormal result of other cardiovascular function study; R00.1 Bradycardia, unspecified
CPT/HCPCS: 78452; 93017; A9500; A4216; J2785

== ENCOUNTER → 2021-08-13 06:18 | Outpatient (CLI) | payer MEDICARE, OTHER, SELFPAY ==
--- NOTE | 2021-08-13 06:20 | RAD_ITS ---
STUDY: X-RAY CHEST REASON FOR EXAM: Male, 76 years old. For heart cath TECHNIQUE: PA and lateral views of the chest. COMPARISON: None. FINDINGS: Status post median sternotomy. The lungs are clear and expanded. There is no demonstrated pleural abnormality. Normal size heart. Normal mediastinum and volodymyr. Normal visualized pulmonary arteries. Normal visualized aortic arch and descending thoracic aorta. Normal visualized thoracic spine. Normal visualized ribs, clavicles, and shoulders. There is no demonstrated abnormality of the visualized soft tissue structures of the upper abdomen. RAD/Chest PA and Lateral IMPRESSION: Normal x-ray examination of the chest. Electronically Signed: Chiki Romo MD at 9:01 EST Tel , Service support ,
== END ==
PROVIDERS: PCP Family Medicine; Referring Provider Internal Medicine Cardiovascular Disease; Visit Provider Internal Medicine Cardiovascular Disease
DX: R94.39 Abnormal result of other cardiovascular function study (principal)
CPT/HCPCS: 71046

== ENCOUNTER 2021-08-18 06:48 | Day surgery (SDC) | payer MEDICARE, OTHER, SELFPAY ==
[2021-08-14 07:25] VITALS: BMI 27.8
[2021-08-18 07:05] LABS: INR Fingerstick 1.1; Prothrombin Time Fingerstick 13.3 SEC (11.9-14.4)
--- NOTE | 2021-08-18 08:32 | HP.PCM_ITS ---
History and Physical Date of Admission: 08/18/21 This is a 76-year-old gentleman that presents to the [facility] today for a left heart catheterization. He has a history of mitral valve replacement in [address] [employer] mechanical valve. In 2005, he had 2 discrete episodes of visual changes in his left eye. This was evaluated by ophthalmology and no abnormality was found. The patient underwent a stress test on 08/12/2021 for preoperative evaluation. This was considered to be abnormal with probable inferior ischemia and a medium size zone. Due to abnormal stress test, he will proceed with heart catheterization. From a cardiac standpoint, patient is doing well. He does not have any chest discomfort/heaviness/tightness. His exercise tolerance is stable for his age. He does not have any worsening symptoms of shortness of breath. He denies any PND. He does not have any orthopnea. He does not have any symptoms of con gestive heart failure. He does not have any palpitations that he is aware of. He does not have any lightheadedness or dizziness. He does not have any near- syncope or syncope. He does not have any lower extremity edema. He does not have any symptoms of claudication. Intake Vital Signs: See EMR Intake Visit Reasons: [facility] Data Services Developer Required: No Accompanied by: None Is patient in pain?: No Allergies procaine [From Novocain] Allergy (Verified 01/16/21 09:07) Swelling simvastatin [From Zocor] Allergy (Verified 01/16/21 09:07) Other IVP dye Allergy (Severe, Uncoded 01/16/21 09:07) Unknown Medications See EMR Ejection fraction %: 65 to 70 [facility] Medical History Back pain Essential hypertension Family history of malignant neoplasm of colon in mother Hemorrhoid History of cerebral hemorrhage History of colonic polyps History of kidney cancer Hyperlipidemia Nonrheumatic mitral (valve) insufficiency Nonrheumatic mitral (valve) prolapse Rheumatoid arthritis TIA (transient ischemic attack) (12/2015) Surgical History History of colonoscopy with polypectomy (10/2016) History of heart valve replacement History of mitral valve replacement (1999) History of nephrectomy History of sinus surgery History of tonsillectomy and adenoidectomy Mitral valve replaced Family History Mother Colon cancer Breast cancer CAD (coronary artery disease) Hypertension Brother Hypertension Diabetes Social History Smoking Status: Never smoker how long ago did patient quit smokin alcohol intake: current substance use type: does not use ROS Const Const: Negative for fatigue, weakness, headache(s), frequent falls, difficulty sleeping or excessive sweating Eyes Eyes: Negative for loss of peripheral vision, transient loss of vision, blurry vision, double vision or tunnel vision ENT ENT: Negative for headache(s), dizziness, Nosebleed/epistaxis or balance problems Cardio Chest Pain: No Palpitations: No Edema: None Muscle aches with walking: None Resp Respiratory: Negative for SOB with activity, SOB at rest, SOB orthopnea\SOB lying down, Cough or paroxysmal nocturnal dyspnea GI GI: Negative nausea, vomiting, heartburn or black,tarry stools : Negative for hematuria Musc Musc: Negative for muscle aches/ myalgia, muscle weakness, joint pain or balance problems Skin Skin: Negative non-healing lesions, rash or unusual bruising Neuro Neuro: Negative for dizziness, lightheadedness, near syncope, syncope, frequent falls, headache(s), weakness, blurry vision, double vision or lack of coordination Kali Hematologic/Lymphatic: Negative for easy bleeding or easy bruising Endo Endo: Negative for fatigue, excessive sweating or increased thirst/drinking Psych Psych: Negative for anxiety or depression Allergy Allergy/Immunology: Negative for hives and Negative for rash Cardiology Exam Const Appearance: cooperative, healthy appearing, comfortable, no acute distress and well developed Orientation: alert, awake and oriented x3 Head Head: normal to inspection Ears: hearing grossly normal bilaterally Nose: external nose normal Face and Sinus: face symmetric Mouth: oral mucosae normal, lip normal and moist mucous membranes Eyes General: appearance normal, both eyes and all related structures Eyelids: eyelids normal Conjunctivae: conjunctivae normal Pupils: PERRL EOM: EOM intact bilaterally Neck Neck: normal visual inspection and trachea midline; Negative no JVD Carotids: Negative bruit Chest Chest inspection: normal inspection of the chest Auscultation: Bilateral: Clear to Auscultation Cardio Palpation: normal PMI Rate: regular rate Rhythm: regular rhythm Heart sounds: S1 normal, S2 normal, murmur and crisp prosthetic S2; Negative rub or gallop Murmur: Grade 2/6 and mid systolic GI GI: soft, no hepatosplenomegaly and bowel sounds present Neuro General: patient alert, patient awake, patient oriented x3 and CN's II-XI intact bilaterally Extremities Pulses: Normal: Right Posterior Tibial Pulse, Left Posterior Tibial Pulse, Right Radial Pulse and Left Radial Pulse Lower Extremity Edema: None: Bilateral Psych Psychological: normal affect Assessment and Plan Assessment and Plan (1) Essential hypertension: Status: Chronic Blood pressure is well controlled on current medications, we do not recommend any changes at this time. (2) History of mitral valve replacement: Status: Chronic Stable, will continue to monitor by history, exam and echocardiograms as deemed appropriate. Patient will continue with antibiotic prophylaxis per AHA guidelines. His INR is managed by his PCP. (3) Hyperlipidemia: Status: Chronic Lipid profile from 2019 demonstrates a total cholesterol of 191, HDL 57, LDL 107. Patient will continue with moderate intensity statin. This is managed by his PCP. (4) Abnormal Stress Test Status: Acute On account of most recent stress test being abnormal as well as preoperative evaluation, he will proceed with heart catheterization.
--- NOTE | 2021-08-18 09:36 | CL.D_ITS ---
Patient Name: LUCIANO OLSON Study Date: 08/18/2021 Performing: Yosef Maloney MD Ht: 66.92 inches 170 cm : 1945 Wt: 178.57 lbs 81 kg Age: 76 Gender: male BSA: 1.93 PROCEDURE(S) PERFORMED DC02-(44970)C/COR CLINICAL PROFILE AND INDICATIONS Indications: Suspected CAD Heart Failure: None Stress/Imaging Date: 08/07/2021tress Test with SPECT MPI: Positive Intermediate Risk CAD Presentations: Symptom unlikely to be ischemic. CONCLUSIONS Normal coronary arteries RECOMMENDATIONS Medical therapy DESCRIPTION OF PROCEDURE The patient arrived to the procedure lab. The risks and benefits of the procedure as well as a full d escription of our services here and current unavailability of surgical backup were fully explained to the patient and/or their significant other prior to the catheterization. The Timeout was completed, verifying the correct patient and procedure. The patient's procedural site was prepped and draped in the usual fashion. Local anesthetic was given subcutaneously to right radial region with Lidocaine 2% . Using a modified Seldinger technique, arterial access was obtained via the right radial artery, a 6 Fr sheath was inserted. Right Coronary Artery selective angiography was then performed in multiple v iews using a 5 Fr. 4.0 [place] catheter. Left Coronary Artery selective angiography was performed in mu ltiple views using a 5 Fr. JL3.5 catheter.The arterial sheath was pulled and a TR Band was applied fo r hemostasis CORONARY ANGIOGRAPHY DOMINANCE: Right Dominant LEFT HEART ASSESSMENT Left Ventricular Ejection Fraction: by Echo 65 % Normal LV wall motion Normal Left Ventricular systolic function LEFT MAIN: Angiographically normal LEFT ANTERIOR DESCENDING ARTERY: Angiographically normal CIRCUMFLEX ARTERY: Angiographically normal RIGHT CORONARY ARTERY: Angiographically normal VALVE FINDINGS: Replacement COMPLICATIONS No Complications PROCEDURE MEDICATIONS Versed 1 mg IV Fentanyl 50 mcg IV Versed 1 mg IV Oxygen: 2 L/min via nasal cannula Benadryl 25 mg IV @ 08/18/2021 08:48:00 Heparin given IA 08/18/2021 09:14:50 Solu-medrol 125 mg IV 08/18/2021 08:48:17 SUMMARY OF HEMODYNAMIC DATA Time AIR REST ECG 07:15:15 AO 110/69 (86) SA 09:16:41 Signed By Yosef Maloney MD On 08/18/2021 09:35:39 Yosef Maloney MD
== END 2021-08-18 23:59 | disposition home or self-care (01) ==
LOC: CLSP 06:52
PROVIDERS: PCP Family Medicine; Referring Provider Internal Medicine Cardiovascular Disease; Visit Provider Internal Medicine Cardiovascular Disease
DX: R94.39 Abnormal result of other cardiovascular function study (principal); M06.9 Rheumatoid arthritis, unspecified; R07.89 Other chest pain; I10 Essential (primary) hypertension; E78.5 Hyperlipidemia, unspecified; I34.1 Nonrheumatic mitral (valve) prolapse; Z86.73 Personal history of transient ischemic attack (TIA), and cerebral infarction without residual deficits; Z85.528 Personal history of other malignant neoplasm of kidney; Z86.010 Personal history of colon polyps; Z95.2 Presence of prosthetic heart valve; Z79.899 Other long term (current) drug therapy; Z79.01 Long term (current) use of anticoagulants; Z79.82 Long term (current) use of aspirin
CPT/HCPCS: 36416; 85610; 93454; 93458; 99152; 99153; J7040; Q9967; C1769; C1894

== ENCOUNTER 2021-08-28 09:43 | Outpatient (CLI) | payer MEDICARE, OTHER, SELFPAY | END 2021-08-28 23:59 | disposition short-term general hospital (02) | LOC: LABSPEC 09:45 | PROVIDERS: PCP Family Medicine; Referring Provider Physician Assistant; Visit Provider Physician Assistant | DX: Z20.822 Contact with and (suspected) exposure to COVID-19 (principal) | CPT/HCPCS: 87635; U0003; U0005 ==

== ENCOUNTER 2021-10-16 09:56 | Outpatient (CLI) | payer MEDICARE, OTHER, SELFPAY ==
[2021-10-16 13:11] LABS: Vitamin B12 356 pg/mL (211-911)
[2021-10-16 13:16] LABS: Anion Gap 6 (5-15); BUN 15 mg/dL (7-18); BUN/Creat Ratio 14.2 RATIO (10-20); Calcium,Total 9.2 mg/dL (8.5-10.1); Chloride 106 mmol/L (98-107); Creatinine, Serum 1.06 mg/dL (0.70-1.30); EST Glomerular Filtration Rate 72 mL/min (>60); Est Glom Filt Rate - Afr Amer 88 mL/min (>60); Glucose 82 mg/dL (74-106); Potassium 4.5 mmol/L (3.5-5.1); Sodium Level 136 mmol/L (136-145); Thyroid Stim Hormone (TSH) 2.54 uIU/mL (0.358-3.74)
== END 2021-10-16 23:59 | disposition home or self-care (01) ==
LOC: MFPLAB 10:02
PROVIDERS: PCP Family Medicine; Referring Provider Family Medicine; Visit Provider Psychiatry & Neurology Neurology
DX: G24.4 Idiopathic orofacial dystonia (principal); I10 Essential (primary) hypertension
CPT/HCPCS: 36415; 80048; 82607; 84443

== ENCOUNTER 2021-10-21 15:23 | Outpatient (CLI) | payer MEDICARE, OTHER, SELFPAY ==
--- NOTE | 2021-10-21 15:24 | MRI_ITS ---
STUDY: MRI BRAIN WITH AND WITHOUT CONTRAST REASON FOR EXAM: Male, 76 years old patient with oral dyskinesias and twitching. TECHNIQUE: Standardized multiplanar fat and water weighted pulse sequences were obtained. 15 ml of IV Dotarem was administered for the contrast portion of the examination. COMPARISON: CT of the head dated 10/08/2014. FINDINGS: There is mild cerebral atrophy with widening of the extra-axial spaces and ventricular dilatation. Normal white matter tracts of the supratentorial brain. There is no evidence for recent intracranial ischemia or other cause of cytotoxic edema on diffusion weighted imaging (DWI). Normal T2* images of the brain without demonstrated susceptibility artifact. There is no demonstrated hemosiderin stain. Normal bilateral basal ganglia. Normal thalami. There is no extra-axial fluid accumulation. Normal flow voids within the major intracranial circulation suggesting patency by spin echo criteria. Normal venous enhancement. There is no enhancing intra-axial or extra-axial abnormality. Normal sella turcica, pituitary gland, infundibular stalk, optic chiasm and hypothalamus. Normal tectal plate and pineal gland. Normal midbrain, stephie and medulla. Normal cerebellum. Normal basal cisterns. Normal bilateral temporal bones. Normal bilateral internal auditory canals. No demonstrated orbital abnormality, within the constraints of a routine brain study. Left maxillary mucous retention cyst. Normal calvarium and skull base. Normal visualized soft tissue structures. Normal visualized upper cervical spine. MRI/Brain W/WO Contrast IMPRESSION: 1. Involutional changes of the brain, as described above. 2. No MRI evidence for acute infarct. Electronically Signed: Tricia Brannon MD at 4:50 EST ,
== END 2021-10-21 23:59 | disposition home or self-care (01) ==
LOC: MRI 15:24
PROVIDERS: PCP Family Medicine; Referring Provider Psychiatry & Neurology Neurology; Visit Provider Psychiatry & Neurology Neurology
DX: G24.4 Idiopathic orofacial dystonia (principal)
CPT/HCPCS: 70553; A9575

== ENCOUNTER 2021-10-22 20:24 | Outpatient (CLI) | payer MEDICARE, OTHER, SELFPAY | END 2021-10-22 23:59 | disposition home or self-care (01) | PROVIDERS: PCP Family Medicine; Visit Provider Psychiatry & Neurology Neurology | DX: G47.61 Periodic limb movement disorder (principal) | CPT/HCPCS: 95810 ==

== ENCOUNTER → 2021-12-08 | Outpatient (CLI) | payer MEDICARE, OTHER, SELFPAY | END | disposition home or self-care (01) | LOC: SL 19:58 | PROVIDERS: PCP Family Medicine; Visit Provider Nurse Practitioner Acute Care | DX: G47.33 Obstructive sleep apnea (adult) (pediatric) (principal) | CPT/HCPCS: 95811 ==

== ENCOUNTER → 2022-02-10 | Outpatient (CLI) | payer MEDICARE, OTHER, SELFPAY ==
[2022-02-10 15:25] LABS: Hemoglobin 14.7 g/dL (13.0-16.5); Mean Corp Hgb Conc 33.4 g/dL (32-36); Mean Corpuscular Hgb 27.2 pg (27.0-32.0); Mean Corpuscular Volume 81.3 fL (80-94); Mean Platelet Vol. 12.6 fl (6.2-12.0); Platelet Count 200 K/mm3 (150-450); RBC Distribution Width CV 14.1 % (11.6-14.6); RBC Distribution Width SD 41.2 fl (35.1-43.9); Red Blood Count 5.41 M/mm3 (4.6-6.2)
[2022-02-10 15:50] LABS: Ferritin 42 ng/mL (26-388); Iron 73 ug/dL (65-175)
== END | disposition home or self-care (01) ==
LOC: MFPLAB 14:02
PROVIDERS: PCP Family Medicine; Visit Provider Psychiatry & Neurology Neurology
DX: R53.83 Other fatigue (principal); Z95.2 Presence of prosthetic heart valve; G47.61 Periodic limb movement disorder
CPT/HCPCS: 36415; 82728; 83540; 85027

== ENCOUNTER → 2022-11-10 | Outpatient (CLI) | payer MEDICARE, SELFPAY ==
[2022-11-10 15:41] LABS: Absolute Lymphocyte Count 1.68 X10^3/uL (0.83-4.51); Absolute Neutrophil Count 5.3 X10^3/uL (2.0-7.7); Basophil# 0.06 X10^3/uL; Basophil% 0.8 % (0-1); Eosinophils% 2.6 % (0-5); Hematocrit 47.2 % (40-54); Hemoglobin 15.2 g/dL (13.0-16.5); Lymphocyte # 1.68 X10^3/ul (0.83-4.51); Lymphocyte % 21.6 % (19-41); Mean Corp Hgb Conc 32.2 g/dL (32-36); Mean Corpuscular Hgb 27.9 pg (27.0-32.0); Mean Corpuscular Volume 86.8 fL (80-94); Mean Platelet Vol. 13.6 fl (6.2-12.0); Monocyte# 0.52 X10^3/uL; Monocyte% 6.7 % (0-10); NRBC Flagged by Analyzer 0 % (0-5); Platelet Count 176 K/mm3 (150-450); RBC Distribution Width CV 13.9 % (11.6-14.6); RBC Distribution Width SD 43.8 fl (35.1-43.9); Red Blood Count 5.44 M/mm3 (4.6-6.2); White Blood Count 7.8 K/mm3 (4.4-11.0)
[2022-11-10 16:11] LABS: Erythrocyte Sedimentation Rate 4 mm/hr (0-20)
[2022-11-10 17:00] LABS: ALB/GLOB Ratio 1.1 RATIO (0.9-2.4); AST(SGOT) 25 U/L (15-37); Alanine Aminotransfer ALT/SGPT 26 U/L (16-61); Albumin, Serum 3.5 g/dL (3.2-5.0); Alkaline Phosphatase 49 U/L (45-117); Anion Gap 5 (5-15); BUN 15 mg/dL (7-18); BUN/Creat Ratio 14.4 RATIO (10-20); Calcium,Total 8.8 mg/dL (8.5-10.1); Chloride 109 mmol/L (98-107); Creatinine, Serum 1.04 mg/dL (0.70-1.30); EST Glomerular Filtration Rate 74 mL/min (>60); Est Glom Filt Rate - Afr Amer 89 mL/min (>60); Globulin 3.3 g/dL (2.2-4.2); Glucose 101 mg/dL (74-106); Potassium 4.2 mmol/L (3.5-5.1); Protein, Total 6.8 g/dL (6.4-8.2); Sodium Level 139 mmol/L (136-145); Thyroid Stim Hormone (TSH) 2.13 uIU/mL (0.358-3.74)
== END | disposition home or self-care (01) ==
LOC: MFPLAB 11:45
PROVIDERS: PCP Family Medicine; Referring Provider Family Medicine; Visit Provider Family Medicine
DX: R53.81 Other malaise (principal)
CPT/HCPCS: 36415; 80053; 84443; 85025; 85652

== ENCOUNTER → 2023-11-02 | Outpatient (CLI) | payer MEDICARE, OTHER, SELFPAY ==
[2023-11-02 12:40] LABS: AST(SGOT) 29 U/L (15-37); Alanine Aminotransfer ALT/SGPT 29 U/L (16-61); Cholesterol 179 mg/dL (200); High Density Lipoprotein 56 mg/dL; Thyroid Stim Hormone (TSH) 2.47 uIU/mL (0.358-3.74); Triglycerides 91 mg/dL; Very Low Density Lipoprotein 18 mg/dL (5-40)
== END | disposition home or self-care (01) ==
LOC: MFPLAB 10:14
PROVIDERS: PCP Family Medicine; Visit Provider Family Medicine
DX: E78.00 Pure hypercholesterolemia, unspecified (principal)
CPT/HCPCS: 36415; 80061; 84443; 84450; 84460

== ENCOUNTER 2023-12-25 05:38 | Emergency (ER) | payer MEDICARE, OTHER, SELFPAY ==
[2023-12-25] VITALS (7 sets, daily range): BP systolic 103–130; BP diastolic 57–76; PULSE 62–88; RESP 16–18; TEMP 36.5–36.6; O2SAT 93–98; BMI 28.5
[2023-12-25] MEDS: Ipratropium/Albuterol Sulfate 3 ML AMPUL.NEB INHALATION (05:52)
--- NOTE | 2023-12-25 06:01 | EX.ED.DYSGE1 ---
HPI History of Present Illness Chief Complaint: Cough Informant: patient and spouse/S.O. Onset/Context/Timing Onset: Weeks (2 weeks) Context: Gradual Onset Narrative Narrative: Patient presents with 2-week history of cough. He reportedly came home from a restoration retreat where there was a bonfire and he had a scratchy throat with mild cough. Cough has persisted over the past 2 weeks and seems to be worsening. He is now bringing up white frothy sputum. noted he was wheezing slightly. He thought it was allergy related and has been taking Flonase without improvement. He has not had fever or chills. [facility] Medical History Back pain Back problem Essential hypertension Family history of malignant neoplasm of colon in mother Heart disease Heart murmur Hemorrhoid History of blood transfusion History of cerebral hemorrhage History of colonic polyps History of kidney cancer Hyperlipidemia Nonrheumatic mitral (valve) insufficiency Nonrheumatic mitral (valve) prolapse LICO on CPAP Rheumatoid arthritis TIA (transient ischemic attack) (12/2015) Home Medications pravastatin 40 mg tablet 40 mg PO DAILY 07/25/13 [History Last Taken 08/18/21] docusate sodium 100 mg capsule 100 mg PO DAILY 10/26/16 [History Last Taken Unknown] omeprazole 20 mg capsule,delayed release 20 mg PO DAILY 01/16/20 [History Last Taken 08/18/21] sildenafil 50 mg tablet 50 mg PO DAILY PRN sexual activity #10 tabs 10/16/21 [Rx Last Taken Unknown] aspirin 81 mg tablet,delayed release 81 mg PO MOFR 01/13/22 [History Last Taken Unknown] warfarin 3 mg tablet 3 mg PO 4XW 01/13/22 [History Last Taken Unknown] warfarin 5 mg tablet 5 mg PO QMWF 01/13/22 [History Last Taken Unknown] ferrous sulfate 325 mg (65 mg iron) tablet 325 mg PO DAILY 02/17/22 [History Last Taken Unknown] ropinirole 0.5 mg tablet 0.5 mg PO QHS #30 tabs 09/02/23 [Rx Last Taken Unknown] benzonatate 200 mg capsule 200 mg PO BID PRN cough #14 caps 12/25/23 [Rx Last Taken Unknown] loratadine 10 mg tablet 10 mg PO DAILY #30 tabs 12/25/23 [Rx Last Taken Unknown] Allergy/AdvReac Type Severity Reaction Status Date / Time Iodinated Contrast Media Allergy NEEDS Verified 12/25/23 06:31 FOLLOW-UP procaine [From Novocain] Allergy Swelling Verified 12/25/23 06:31 simvastatin [From Zocor] Allergy Other Verified 12/25/23 06:31 Family History Mother Colon cancer Breast cancer CAD (coronary artery disease) Hypertension Cervical cancer Brother Hypertension Diabetes Surgical History H/O knee surgery History of colonoscopy with polypectomy (10/2016) History of left heart catheterization (08/18/21) History of mitral valve replacement (1999) History of nephrectomy History of sinus surgery History of tonsillectomy and adenoidectomy Social History Smoking Status: Former smoker Tobacco: How many years used: 30 Electronic Cigarette Use: not used how long ago did patient quit smokin second hand exposure: No alcohol intake: current alcohol intake frequency: holidays/special occasions only substance use type: does not use caffeine: Yes Type: coffee Number of servings: 1 what type of physical activity do you participate in: other ROS ROS ED Constitutional Constitutional ED: Denies chills or fever(s) Eyes Eyes: Denies discharge from eye(s) ENT ENT ED: Denies discharge from eye(s), rhinorrhea or sore throat Cardiovascular Cardiovascular: Denies chest pain Respiratory/Chest Respiratory/Chest: Reports cough and other Details: Occasional wheezing Gastrointestinal Gastrointestinal: Denies abdominal pain, nausea or vomiting Musculoskeletal Musculoskeletal: Denies back pain or extremity pain Integumentary Denies Abrasions or rash Neurologic Neurologic: Denies headache(s) or weakness Psychiatric Psychiatric: Denies anxiety or depression Allergic/Immunologic Allergic/Immunologic ED: Denies lip swelling or urticaria EXAM Physical Exam Const Vital Signs: 12/25/23 05:39 12/25/23 05:38 12/25/23 05:42 Temperature 97.9 F 97.9 F Temperature Source Oral Oral Pulse Rate 68 68 68 Respiratory Rate 16 16 16 Respiratory Effort Respiratory Depth Respiratory Pattern Blood Pressure 130/76 H 130/76 H 130/76 H Blood Pressure Mean 94 94 94 Pulse Ox 98 98 98 Oxygen Delivery Method Room Air Room Air Room Air 12/25/23 05:44 12/25/23 05:54 Temperature Temperature Source Pulse Rate 88 Respiratory Rate 16 Respiratory Effort Normal Respiratory Depth Normal Respiratory Pattern Normal Blood Pressure Blood Pressure Mean Pulse Ox Oxygen Delivery Method Room Air Positive well nourished and well developed General Appearance ED: well developed HEENT Reports TM's clear and moist mucous membranes HEENT Narrative: Posterior pharynx exam unremarkable. Tympanic Membrane ED: Yes TM's clear Eyes EOMs intact bilaterally Chest Wall inspection of chest normal and palpation of chest normal Resp normal respiratory effort Resp Narrative: Mild inspiratory wheezes noted in the right upper lobe. Cardio regular rate and regular rhythm GI normal to inspection, nondistended, normoactive bowel sounds and non-tender Extremity normal to inspection Neuro oriented x3 and no sensory deficits noted Motor Exam: strength 5/5 throughout Psych mental status grossly normal Skin no rashes or lesions noted MDM MDM MDM Narrative Medical decision making narrative: Patient be given a DuoNeb treatment. Two-view chest x-ray be obtained to evaluate for potential infiltrate. Radiography Diagnostic Testing: Clinical Impression(s) from Imaging Studies Chest X-Ray 12/25/23 06:10 IMPRESSION: No evidence of active intrathoracic disease. Electronically Signed: Carrie Gardiner MD at 6:37 EDT , Treatment and Re-Evaluation :: Following DuoNeb treatment patient does not feel any significant difference. On auscultation of his lungs his inspiratory wheezes resolved. Patient be given prescription for Claritin and Tessalon Perles. Two-view chest x-ray per my interpretation reveals no evidence of infiltrate. Radiology interpretation reviewed and agrees. Test results discussed with patient and . They are in agreement with the plan. Discharge Plan Triage Chief Complaint: Cough ED Provider: Diana Petty Dx/Rx/DC Orders Clinical Impression: Cough Instructions: ED Cough Chronic Uncertain Cause Adult Prescriptions: New benzonatate 200 mg capsule 200 mg PO BID PRN (Reason: cough) Qty: 14 0RF loratadine 10 mg tablet 10 mg PO DAILY Qty: 30 0RF No Action omeprazole 20 mg capsule,delayed release(DR/EC) 20 mg PO DAILY warfarin 3 mg tablet 3 mg PO 4XW warfarin 5 mg tablet 5 mg PO QMWF sildenafil 50 mg tablet 50 mg PO DAILY PRN (Reason: sexual activity) Qty: 10 4RF Rx Instructions: administer 30 minutes to 4 hours before activity ferrous sulfate 325 mg (65 mg iron) tablet 325 mg PO DAILY ropinirole 0.5 mg tablet 0.5 mg PO QHS Qty: 30 11RF pravastatin 40 MG tablet 40 mg PO DAILY docusate sodium 100 MG capsule 100 mg PO DAILY aspirin 81 mg tablet,delayed release (DR/EC) 81 mg PO MOFR Hold Instructions: nosebleeds Primary Care Provider: Rukhsana Melo Referrals: Rukhsana Melo MD [Primary Care Provider] - 1 Week if not improving Disposition Disposition: Home, Self Care
--- NOTE | 2023-12-25 06:10 | RAD_ITS ---
INDICATION: cough EXAMINATION/TECHNIQUE: X-RAY - XR Chest 2 Views COMPARISON: None. FINDINGS: LINES/DEVICES: None. LUNGS: No consolidation. No pneumothorax. MEDIASTINUM: The aorta is atherosclerotic. CARDIAC SILHOUETTE: Not enlarged. Sternal wires. BONES AND SOFT TISSUES: No acute abnormalities. RAD/Chest PA and Lateral IMPRESSION: No evidence of active intrathoracic disease. Electronically Signed: Carrie Gardiner MD at 6:37 EDT ,
== END 2023-12-25 06:56 | disposition home or self-care (01) ==
PROVIDERS: Emergency Provider Emergency Medicine; PCP Family Medicine; Visit Provider Emergency Medicine
DX: R05.9 Cough, unspecified (principal); Z87.891 Personal history of nicotine dependence; I10 Essential (primary) hypertension; Z85.528 Personal history of other malignant neoplasm of kidney; E78.5 Hyperlipidemia, unspecified; Z86.73 Personal history of transient ischemic attack (TIA), and cerebral infarction without residual deficits; G47.33 Obstructive sleep apnea (adult) (pediatric); Z99.89 Dependence on other enabling machines and devices; Z79.899 Other long term (current) drug therapy; Z79.01 Long term (current) use of anticoagulants; Z79.82 Long term (current) use of aspirin; Z95.2 Presence of prosthetic heart valve; Z90.5 Acquired absence of kidney
CPT/HCPCS: 71046; 94640; 99282

== ENCOUNTER → 2024-03-14 | Outpatient (CLI) | payer MEDICARE, OTHER, SELFPAY ==
--- NOTE | 2024-03-14 07:42 | ECHOD_ITS ---
Reason For Study: Valve Replacement Procedure This was a 2D Doppler, Color Flow transthoracic echocardiogram. Exam performed in department. Left Ventricle Normal LV size. Left ventricular systolic function is normal. The left ventricular ejection fraction is 55 %. Stage 1 diastolic dysfunction. No regional wall motion abnormalities noted. Right Ventricle Normal RV size. Normal systolic function. Atria Normal left atrium. Normal right atrium. Mitral Valve Stable appearing mechanical mitral valve apparatus. Tricuspid Valve Normal tricuspid valve. Trivial tricuspid valve insufficiency. Pulmonary artery systolic pressure is 25 mmHg. Aortic Valve Trisinus/trileaflet aortic valve. Pulmonic Valve The pulmonic valve is not well visualized. Great Vessels Normal aortic root. The pulmonary artery is normal size. Normal inferior vena cava. Pericardium/Pleural No pericardial effusion. MMode/2D Measurements & Calculations LVIDd: 4.8 cm IVSd: 0.80 cm Ao root diam: 3.4 cm LVIDs: 3.1 cm LVPWd: 0.99 cm RVDd: 4.4 cm FS: 35.8 % LAV(MOD-bp): 59.1 ml LA A4 area: 18.2 cm2 RA A4 area: 15.2 cm2 LAV(MOD-bp) Indexed: 30.7 ml/m2 LAV(MOD-sp2): 67.3 ml LAV(MOD-sp4): 49.6 ml Time Measurements MV dec time: 0.31 sec Doppler Measurements & Calculations MV E max jonathon: 86.6 cm/sec Lat Peak E' Jonathon: 11.5 cm/sec Med Peak E' Jonathon: 7.1 cm/sec MV A max jonathon: 110.6 cm/sec E/E' lat: 7.5 E/E' med: 12.2 MV E/A: 0.78 MV V2 max: 122.9 cm/sec MV P1/2t max jonathon: 112.5 cm/sec Ao V2 max: 148.3 cm/sec MV max P.1 mmHg MV P1/2t: 112.0 msec Ao max P.9 mmHg MV V2 mean: 57.9 cm/sec MV dec slope: 294.1 cm/sec2 MV mean P.7 mmHg MVA(P1/2t): 2.0 cm2 MV V2 VTI: 37.3 cm LV V1 max: 126.5 cm/sec PA V2 max: 141.2 cm/sec PI end-d jonathon: 102.0 cm/sec LV V1 max P.4 mmHg PA max PG (full): 5.2 mmHg PA V2 mean: 83.1 cm/sec PA mean PG (full): 2.2 mmHg TR max jonathon: 237.0 cm/sec TR max P.5 mmHg ECHO/Echo Complete Interpretation Summary Normal LV size. Left ventricular systolic function is normal. The left ventricular ejection fraction is 55 %. Stable appearing mechanical mitral valve apparatus. Stage 1 diastolic dysfunction. Ordering Physician: Amy Yao Referring Physician: Rukhsana Melo M.D. Performed By: Zane Perez RCS
== END | disposition home or self-care (01) ==
LOC: CVS 07:41
PROVIDERS: PCP Family Medicine; Referring Provider Physician Assistant Medical; Visit Provider Physician Assistant Medical
DX: Z95.2 Presence of prosthetic heart valve (principal)
CPT/HCPCS: 93306

== ENCOUNTER → 2024-06-13 | Outpatient (CLI) | payer MEDICARE, OTHER, SELFPAY ==
[2024-06-13 09:55] LABS: Hematocrit 46.3 % (40-54); Hemoglobin 15.2 g/dL (13.0-16.5); Mean Corp Hgb Conc 32.8 g/dL (32-36); Mean Corpuscular Hgb 27.7 pg (27.0-32.0); Mean Corpuscular Volume 84.3 fL (80-94); Mean Platelet Vol. 12.2 fl (6.2-12.0); Platelet Count 202 K/mm3 (150-450); RBC Distribution Width CV 14.2 % (11.6-14.6); RBC Distribution Width SD 43.8 fl (35.1-43.9); Red Blood Count 5.49 M/mm3 (4.6-6.2); White Blood Count 7.5 K/mm3 (4.4-11.0)
[2024-06-13 10:33] LABS: Vitamin B12 592 pg/mL (211-911)
[2024-06-13 10:38] LABS: AST(SGOT) 24 U/L (15-37); Alanine Aminotransfer ALT/SGPT 35 U/L (16-61); Albumin, Serum 3.6 g/dL (3.2-5.0); Alkaline Phosphatase 48 U/L (45-117); Anion Gap 6 (5-15); BUN 19 mg/dL (7-18); BUN/Creat Ratio 16.1 RATIO (10-20); Chloride 108 mmol/L (98-107); Creatinine, Serum 1.18 mg/dL (0.70-1.30); EST Glomerular Filtration Rate 64 mL/min (>60); Est Glom Filt Rate - Afr Amer 77 mL/min (>60); Globulin 3.5 g/dL (2.2-4.2); Glucose 116 mg/dL (74-106); Potassium 4.3 mmol/L (3.5-5.1); Protein, Total 7.1 g/dL (6.4-8.2); Sodium Level 139 mmol/L (136-145)
[2024-06-13 10:47] LABS: AST(SGOT) 26 U/L (15-37); Alanine Aminotransfer ALT/SGPT 33 U/L (16-61); Cholesterol 186 mg/dL (200); High Density Lipoprotein 55 mg/dL; Triglycerides 122 mg/dL; Very Low Density Lipoprotein 24 mg/dL (5-40)
== END | disposition home or self-care (01) ==
LOC: MFPLAB 08:26
PROVIDERS: Psychiatry & Neurology Neurology; PCP Family Medicine; Referring Provider Family Medicine; Visit Provider Family Medicine
DX: E78.00 Pure hypercholesterolemia, unspecified (principal); I10 Essential (primary) hypertension
CPT/HCPCS: 36415; 80053; 80061; 82607; 84443; 84450; 84460; 85027

== ENCOUNTER → 2024-08-17 | Outpatient (CLI) | payer MEDICARE, OTHER, SELFPAY ==
[2024-08-17 10:48] LABS: Hemoglobin A1c 5.7 % (3.8-5.6)
[2024-08-17 10:49] LABS: Ferritin 298 ng/mL (26-388); Iron 74 ug/dL (65-175)
[2024-08-18 15:07] LABS: PSA, Total 2.4 ng/mL (0.0-4.0)
== END | disposition home or self-care (01) ==
LOC: MFPLAB 08:32
PROVIDERS: PCP Family Medicine; Visit Provider Psychiatry & Neurology Neurology
DX: E61.1 Iron deficiency (principal); Z86.2 Personal history of diseases of the blood and blood-forming organs and certain disorders involving the immune mechanism; R39.15 Urgency of urination; R73.9 Hyperglycemia, unspecified
CPT/HCPCS: 36415; 82728; 83036; 83540; 84153

== ENCOUNTER → 2024-11-30 | Outpatient (CLI) | payer MEDICARE, OTHER, SELFPAY ==
--- NOTE | 2024-11-30 11:30 | CT_ITS ---
PROCEDURE: LOW DOSE CT LUNG SCREENING 11/30/2024 REASON FOR EXAM: Former smoker. Patient has smoked 1-2 packs per day for 30 years. History of renal carcinoma. TECHNIQUE: Low Dose CT Lung screening without contrast. One or more dose reduction techniques were used (e.g., Automated exposure control, adjustment of the mA and/or kV according to patient size, use of iterative reconstruction technique). REFERENCE LINK: [facility] Lung-RADS RADIATION DOSE SUMMARY: CTDlvol: 3.02 mGy DLP: 97.79 mGycm COMPARISON: None. FINDINGS: PULMONARY NODULES: (Only nodules >3mm are reported) Nodules described below are on series 1 unless otherwise specified. Pulmonary Nodules: No suspicious nodules are seen. Hardware:Sternotomy wires and mediastinal clips Lymph Nodes:Small benign-appearing mediastinal lymph nodes. Heart and Vasculature:Prior CABG. Mitral valve replacement.Atherosclerotic calcifications of the thoracic aorta. Thoracic aorta and pulmonary arteries have normal contours; noncontrast technique limits evaluation. Coronary Artery Calcifications: Present Lungs and Airways: Mild emphysematous changes are present. Scarring at the lung apices. Pleura:Unremarkable. Upper Abdomen:Small hiatal hernia. Bones:Degenerative changes of the thoracic spine. CT/Low Dose CT Lung Screening IMPRESSION: Mild emphysematous changes. Coronary artery calcification (CAC) is is present Lung-RADS Category: 2 BENIGN (BASED ON IMAGING FEATURES OR INDOLENT BEHAVIOR). RECOMMEND 12-MONTH SCREENING LDCT. Other Significant Findings: None. Reading Location: [place] [id number]
== END | disposition home or self-care (01) ==
LOC: CT 11:24
PROVIDERS: PCP Family Medicine
DX: Z00.00 Encounter for general adult medical examination without abnormal findings (principal); Z87.891 Personal history of nicotine dependence
CPT/HCPCS: 71271

== ENCOUNTER → 2024-12-12 | Outpatient (CLI) | payer MEDICARE, OTHER, SELFPAY ==
[2024-12-12 12:38] LABS: Absolute Lymphocyte Count 1.65 X10^3/uL (0.83-4.51); Absolute Neutrophil Count 4.3 X10^3/uL (2.0-7.7); Basophil# 0.05 X10^3/uL; Basophil% 0.8 % (0-1); Eosinophil# 0.16 X10^3/uL; Eosinophils% 2.4 % (0-5); Hemoglobin 14.4 g/dL (13.0-16.5); Lymphocyte # 1.65 X10^3/ul (0.83-4.51); Lymphocyte % 24.8 % (19-41); Mean Corp Hgb Conc 33.5 g/dL (32-36); Mean Corpuscular Hgb 27.9 pg (27.0-32.0); Mean Corpuscular Volume 83.3 fL (80-94); Mean Platelet Vol. 12.7 fl (6.2-12.0); Monocyte% 7.5 % (0-10); NRBC Flagged by Analyzer 0 % (0-5); Neutrophil # 4.28 X10^3/uL (2.7-7.7); Neutrophil % 64.2 % (47-70); Platelet Count 165 K/mm3 (150-450); RBC Distribution Width CV 13.9 % (11.6-14.6); RBC Distribution Width SD 42.5 fl (35.1-43.9); Red Blood Count 5.16 M/mm3 (4.6-6.2); White Blood Count 6.7 K/mm3 (4.4-11.0)
[2024-12-12 13:58] LABS: Hemoglobin A1c 5.8 % (<=5.6)
[2024-12-12 16:01] LABS: ALB/GLOB Ratio 1.5 RATIO (0.9-2.4); AST(SGOT) 30 U/L (<=37); Alanine Aminotransfer ALT/SGPT 25 U/L (<=46); Albumin, Serum 4.1 g/dL (3.4-4.8); Alkaline Phosphatase 46 U/L (40-129); Anion Gap 10 (5-15); BUN 19 mg/dL (4-19); BUN/Creat Ratio 18.4 RATIO (10-20); Calcium,Total 9.4 mg/dL (7.6-11.0); Carbon Dioxide 22.5 mmol/L (21.0-32.0); Chloride 105 mmol/L (98-108); Creatinine, Serum 1.03 mg/dL (0.70-1.20); EST Glomerular Filtration Rate 75 (>60); Globulin 2.8 g/dL (2.2-4.2); Glucose 94 mg/dL (70-99); Iron 67 ug/dL (65-175); Iron Binding Capacity,Total 299 ug/dL (250-450); Iron Binding Capacity,Unsat 232 ug/dL (228-428); Potassium 4.5 mmol/L (3.3-5.1); Sodium Level 137 mmol/L (133-145); Total Bilirubin 0.36 mg/dL (0.00-1.30)
[2024-12-12 16:03] LABS: Ferritin 414 ng/mL (37-417); Vitamin B12 525 pg/mL (180-914); Vitamin D,25 Hydroxy 21.1 ng/mL (30-100)
== END | disposition home or self-care (01) ==
LOC: MFPLAB 10:50
PROVIDERS: PCP Family Medicine; Referring Provider Family Medicine; Visit Provider Family Medicine
DX: E61.1 Iron deficiency (principal); R53.81 Other malaise; R53.83 Other fatigue; I35.9 Nonrheumatic aortic valve disorder, unspecified; R73.03 Prediabetes
CPT/HCPCS: 36415; 80053; 82306; 82607; 82728; 83036; 83540; 83550; 84443; 85025

== ENCOUNTER → 2024-12-21 | Outpatient (CLI) | payer MEDICARE, OTHER, SELFPAY ==
--- NOTE | 2024-12-21 13:53 | ECHOD_ITS ---
Reason For Study Reason For Study: VALVE REPLACEMENT Procedure This was a 2D Doppler, Color Flow transthoracic echocardiogram. Exam performed in department. Left Ventricle Normal LV size. Left ventricular systolic function is normal. The left ventricular ejection fraction is 70 %. Stage 1 diastolic dysfunction. No regional wall motion abnormalities noted. Right Ventricle Normal RV size. Normal systolic function. Atria Normal left atrium. Normal right atrium. Mitral Valve Mean transmitral valve gradient 3 mmHg. Stable appearing mechanical mitral valve apparatus. Tricuspid Valve Normal tricuspid valve. Aortic Valve Trisinus/trileaflet aortic valve. Pulmonic Valve Normal pulmonic valve. Great Vessels Normal aortic root. The pulmonary artery is normal size. Inferior vena cava collapse with respiration. Pericardium/Pleural No pericardial effusion. MMode/2D Measurements & Calculations LVIDd: 4.7 cm IVSd: 1.1 cm LVOT diam: 2.0 cm LVIDs: 3.1 cm LVPWd: 1.2 cm LVOT area: 3.0 cm2 RVDd: 3.9 cm FS: 33.4 % Ao root diam: 3.4 cm LAV(MOD-sp4): 53.4 ml LVAd ap4: 27.9 cm2 LVLd ap4: 8.1 cm EDV(MOD-sp4): 79.6 ml EDV(sp4-el): 81.7 ml LVAs ap4: 13.9 cm2 LVLs ap4: 6.7 cm ESV(MOD-sp4): 27.8 ml ESV(sp4-el): 24.7 ml EF(MOD-sp4): 65.0 % EF(sp4-el): 69.8 % SV(MOD-sp4): 51.8 ml SV(sp4-el): 57.0 ml LA A4 area: 19.7 cm2 SI(MOD-sp4): 27.1 ml/m2 LA dimension(2D): 4.3 cm RA A4 area: 11.5 cm2 Time Measurements MV dec time: 0.30 sec Doppler Measurements & Calculations MV E max jonathon: 96.3 cm/sec Lat Peak E' Jonathon: 15.2 cm/sec Med Peak E' Jonathon: 9.9 cm/sec MV A max jonathon: 100.4 cm/sec E/E' lat: 6.4 E/E' med: 9.7 MV E/A: 0.96 MV V2 max: 122.5 cm/sec Ao V2 max: 121.2 cm/sec MV max P.0 mmHg MV dec slope: 333.1 cm/sec2 Ao max P.9 mmHg MV V2 mean: 81.4 cm/sec Ao V2 mean: 70.2 cm/sec MV mean P.0 mmHg Ao mean P.5 mmHg MV V2 VTI: 42.1 cm Ao V2 VTI: 22.5 cm AV (velocity ratio): 1.1 MVA(VTI): 1.7 cm2 ADELINA(I,D): 3.2 cm2 ADELINA(V,D): 3.3 cm2 LV V1 max: 131.2 cm/sec SV(LVOT): 72.4 ml PA V2 max: 119.0 cm/sec LV V1 max P.9 mmHg PA V2 mean: 73.4 cm/sec LV V1 mean P.8 mmHg LV V1 mean: 75.5 cm/sec LV V1 VTI: 23.8 cm ECHO/Echo Complete Interpretation Summary Normal LV size. Left ventricular systolic function is normal. The left ventricular ejection fraction is 70 %. Stage 1 diastolic dysfunction. Stable appearing mechanical mitral valve apparatus. Ordering Physician: Ruth Lee Referring Physician: Ruth Lee Performed By: Joaquina Herrera RCS
== END | disposition home or self-care (01) ==
PROVIDERS: PCP Family Medicine; Referring Provider Nurse Practitioner Gerontology; Visit Provider Nurse Practitioner Gerontology
DX: Z95.2 Presence of prosthetic heart valve (principal); R06.02 Shortness of breath
CPT/HCPCS: 93306

== ENCOUNTER 2025-02-13 05:57 | Day surgery (SDC) | payer MEDICARE, OTHER, SELFPAY ==
[2025-02-13] VITALS (9 sets, daily range): BP systolic 94–142; BP diastolic 52–86; PULSE 51–59; RESP 16; TEMP 36.3–37.4; O2SAT 92–95; BMI 27.9
[2025-02-13 06:06] LABS: INR Fingerstick 1.3
[2025-02-13] MEDS: Lactated Ringers 1,000 ML 15 ML IV (06:45)
== END 2025-02-13 08:30 | disposition home or self-care (01) ==
LOC: EN 05:58 → AC 05:59
PROVIDERS: PCP Family Medicine; Referring Provider Family Medicine; Visit Provider Internal Medicine Gastroenterology
PROC: 0DJD8ZZ Inspection of Lower Intestinal Tract, Via Natural or Artificial Opening Endoscopic (ICD-10-PCS; CPT 45378; principal; 2025-02-13 06:55)
DX: K63.5 Polyp of colon (principal); Z86.0100 Personal history of colon polyps, unspecified; I10 Essential (primary) hypertension; Z87.891 Personal history of nicotine dependence; E78.00 Pure hypercholesterolemia, unspecified; K62.1 Rectal polyp; Z86.73 Personal history of transient ischemic attack (TIA), and cerebral infarction without residual deficits; Z79.899 Other long term (current) drug therapy; Z79.82 Long term (current) use of aspirin; Z79.01 Long term (current) use of anticoagulants; Z85.528 Personal history of other malignant neoplasm of kidney; Z95.2 Presence of prosthetic heart valve; Z90.5 Acquired absence of kidney
CPT/HCPCS: 45385; 45380; 36416; 85610; 88305; J2405

== ENCOUNTER → 2025-08-07 | Outpatient (CLI) | payer MEDICARE, OTHER, SELFPAY ==
[2025-08-07 10:26] LABS: PSA,Total - Annual Screen 5.93 ng/mL (0.02-4.00)
[2025-08-09 12:08] LABS: Vitamin D 1,25-Dihydroxy 44.1 pg/mL (24.8-81.5)
== END | disposition home or self-care (01) ==
LOC: MTLAB 08:32
PROVIDERS: PCP Family Medicine; Referring Provider Psychiatry & Neurology Neurology; Visit Provider Psychiatry & Neurology Neurology
DX: E55.9 Vitamin D deficiency, unspecified (principal); R35.0 Frequency of micturition
CPT/HCPCS: 36415; 82652; 84153; G0103